=== PATIENT | female | born 1945 | race Caucasian/White ===

== ENCOUNTER 2016-10-29 16:28 | Emergency (ER) | payer OTHER ==
[2016-10-29 16:35] VITALS: BP 155/88; PULSE 86; RESP 18; TEMP 97.5; O2SAT 94
[2016-10-29] MEDS ORDERED: fentaNYL 100 MCG/2 ML INJ IVP ONE (17:06)
--- NOTE | 2016-10-29 17:10 | EDPHY ---
HPI/HX/ROS/PE/MDM Narrative: CHIEF COMPLAINT: Left sided abdominal pain. HISTORY OF PRESENT ILLNESS: This patient is a pleasant 71 year old female with history of IBS complaining of pressure and pain in the left side of her abdomen that came on suddenly around 14:00, three hours ago. She cannot identify any precipitating event, and states she was working on her computer when the pain began. She describes her discomfort as a dull ache localized to her left upper quadrant with no radiation. She states this is different from her usual IBS discomfort. She reports she has had a colonoscopy three years ago that revealed diverticula. She denies any changes in discomfort following a bowel movement. She states she has not eaten since the onset of symptoms. No history of recent illness. No fever, chills, chest pain, shortness of breath, palpitations, vomiting, diarrhea , urinary complaints, headache, lightheadedness. REVIEW OF SYSTEMS: Aside from elements discussed in the HPI, a comprehensive 10-point review of systems was reviewed and is negative. PAST MEDICAL HISTORY: Irritable bowel syndrome, Takotsubo syndrome, Hypertension , COPD, appendectomy, cholecystectomy, bladder lift SOCIAL HISTORY: Nonsmoker. Denies alcohol or drug use. Friend at bedside. VITAL SIGNS: Reviewed by me GENERAL: Well-developed, well-nourished, resting comfortably in no respiratory distress. HEENT: Atraumatic. Eyes: No icterus, no injection. Mouth: moist mucous membranes. No erythema or lesions. Neck: supple with no adenopathy. LUNGS: Clear to auscultation bilaterally, no wheezes, rhonchi or rales. CARDIAC: Regular rate and rhythm, no rubs, murmurs or gallops. ABDOMEN: Pain to left upper quadrant. Tenderness deep in left upper quadrant. No guarding or rebound. Soft, nondistended, bowel sounds normal. BACK: No CVA tenderness. EXTREMITIES: No trauma. No edema. Range of motion is normal throughout. NEURO: Alert and oriented, grossly nonfocal. SKIN: Warm and dry, no rash. PSYCHIATRIC: Normal mentation, no agitation. Portions of this note were transcribed by a medical liaison. I personally performed a history, physical exam, medical decision making, and confirmed accuracy of information the transcribed note. ED Course: This patient is a 71 year old female presenting with pain and pressure in her left upper quadrant. Physical exam reveals pain and tenderness to left upper quadrant. Plan for labs including CBC, CHEM, ad UA, and CT of the abdomen and pelvis. Labs show elevated WBC. CT shows no clear etiology of patients pain. Urine has evidence of possible very early urinary tract infection. Reassessed the patient. She has developed left flank pain, and agrees that she may have a urinary tract infection. Plan to discharge home in good condition with a prescription for Bactrim. She has an appointment with her primary care physician tomorrow, which I have encouraged her to keep. Urine culture is currently pending. The patient is comfortable with this plan. MDM: Diff dx of patients pain considered including diverticulitis, bowel obstruction , constipation, kidney stone, pyelonephritis, urinary tract infection, entereitis, colitis. - Data Points Imaging Results: CT Abd Pelvis Impression: 1. No source for the patient's left upper quadrant pain. 2. Prior cholecystectomy without biliary obstruction. 3. No hepatosplenomegaly, ascites, or bowel obstruction. 4. Atherosclerotic aorta without aneurysm. 5. No urinary tract obstruction or pyelonephritis. Findings and recommendations discussed with emergency department physician, Tammi Morris MD at 1922 hours on October 29, 2016. Dictated By: Dmitriy Hernandez Laboratory Results: Laboratory Results 10/29/16 16:55 10/29/16 16:55 Medications Given: Discontinued Medications Hydrocodone Bitart/Acetaminophen ([place] 5/325mg Prepack#6) 1 btl TAKEHOME EDNOW ONE Stop: 10/29/16 19:34 Last Admin: 10/29/16 19:46 Dose: 1 btl Dicyclomine HCl (Bentyl) 20 mg PO EDNOW ONE Stop: 10/29/16 19:25 Last Admin: 10/29/16 19:26 Dose: 20 mg Fentanyl (Sublimaze) 50 mcg IVP EDNOW ONE Stop: 10/29/16 17:07 Last Admin: 10/29/16 17:29 Dose: 50 mcg Sodium Chloride (Ns) 1,000 mls @ 0 mls/hr IV ONCE ONE; Wide Open PRN Reason: Protocol Stop: 10/29/16 19:37 Last Admin: 10/29/16 19:43 Dose: 1,000 mls Ondansetron HCl (Zofran) 4 mg IVP EDNOW ONE Stop: 10/29/16 17:57 Last Admin: 10/29/16 17:56 Dose: 4 mg Trimethoprim/Sulfamethoxazole (Bactrim Ds [place]ack#2) 1 btl ANA DEMPSEY ONE Stop: 10/29/16 19:34 Last Admin: 10/29/16 19:45 Dose: 1 btl Microbiology Results: MICROBIOLOGY 10/29/16 16:35 Urine,Clean Catch Urine Culture - Final General Time Seen by Provider: 10/29/16 16:54 Initial Vital Signs: Initial Vital Signs Temperature (C) 36.4 C 10/29/16 16:32 Heart Rate 86 10/29/16 16:32 Respiratory Rate 18 10/29/16 16:32 Blood Pressure 155/88 H 10/29/16 16:32 O2 Sat (%) 94 10/29/16 16:32 O2 Delivery Mode Room Air Allergies/Adverse Reactions: esomeprazole magnesium [From Nexium] Allergy (Severe, Verified 10/29/16 16:29) "shock" morphine [Morphine] Allergy (Severe, Verified 10/29/16 16:29) Anaphylaxis NSAIDS (Non-Steroidal Anti-Inflamma Allergy (Mild, Verified 10/29/16 16:29) Cant take because it upsets her stomach olanzapine [From Zyprexa] Allergy (Mild, Verified 10/29/16 16:29) cimetidine [Cimetidine] Allergy (Unknown, Verified 10/29/16 16:29) BRADYCARDIA metronidazole [From Flagyl] Allergy (Unknown, Verified 10/29/16 16:29) Other-Enter Comments Metronidazole HCl [From Flagyl] Allergy (Unknown, Verified 10/29/16 16:29) Other-Enter Comments omeprazole [From Prilosec] Allergy (Unknown, Verified 10/29/16 16:29) Other-Enter Comments omeprazole magnesium [From Prilosec] Allergy (Unknown, Verified 10/29/16 16:29) Other-Enter Comments dexamethasone Allergy (Verified 10/29/16 16:29) latex [Latex] Allergy (Verified 10/29/16 16:29) Rash tobramycin Allergy (Verified 10/29/16 16:29) immodium Allergy (Uncoded 10/29/16 16:29) spandex Allergy (Uncoded 11/30/13 09:52) Home Medications: Medication Instructions Recorded Estrogens,Conjugated [Premarin 1 marlene VG AD 12/11/11 Vaginal (*)] Famotidine [Pepcid 10mg] 10 mg PO HS 12/11/11 Lisinopril [Zestril 10 mg (*)] 15 mg PO DAILY@1200 12/11/11 Propranolol HCl [Inderal 10mg (*)] 10 mg PO BID 08/18/12 Diphenoxylate HCl/Atrop Sulf 1 tab PO DAILY@08 05/25/14 [Lomotil Tab (*)] Fluticasone Nasal [Flonase Nasal 2 sprays EACHNARE DAILY 05/25/14 [place]] Dicyclomine [Bentyl 10 MG (*)] 10 mg PO 04/05/16 Sulfamethox/Tmp 800/160 mg 1 tab PO BID #14 tab 10/29/16 [Bactrim Ds] Departure - Departure Disposition: Home, Routine, Self-Care Clinical Impression: Possible urinary tract infection, Left flank pain Abdominal pain Qualifiers: Abdominal location: left upper quadrant Qualified Code(s): R10.12 - Left upper quadrant pain Condition: Good Instructions: Hydrocodone/Acetaminophen (By mouth), Urinary Tract Infection in Women (ED), Abdominal Pain (ED) Additional Instructions: 1. Follow up with your primary care physician this week as scheduled. 2. We have started you on Bactrim for a potential urinary tract infection. 3. Please drink plenty of fluids and get plenty of rest. 4. We have sent your urine for culture, and your doctor should be able to relay these results. 5. You may take Tylenol as needed for pain. 6. You may use hydrocodone if needed for more severe pain. If you developed vomiting, fevers, worsening pain, or other concerns, please return to the emergency department or follow up with her primary care physician. Referrals: Tayo Lai [Primary Care Provider] - As per Instructions Prescriptions: Sulfamethox/Tmp 800/160 mg [Bactrim Ds] 1 tab PO BID #14 tab Report Scribed for: Tammi Morris Report Scribed by: Carolyn Sims Date of Report: 10/29/16 Time of Report: 18:13
[2016-10-29 17:15] LABS: % IMMATURE GRANULYOCYTES 0.2 % (0.0-1.1); ABSOLUTE IMMATURE GRANULOCYTES 0.02 10^3/uL (0.00-0.10); ADD DIFF? NO; ADD MORPH? NO; ADD SCAN? NO; ATYPICAL LYMPHOCYTE FLAG 10 (0-99); FRAGMENT RBC FLAG 0 (0-99); HEMATOCRIT 44.9 % (38.0-47.0); HEMOGLOBIN 15.2 g/dL (12.6-16.3); LEFT SHIFT FLG 0 (0-99); LIPEMIA HEMOLYSIS FLAG 90 (0-99); MEAN CELL HEMOGLOBIN 29.9 pg (27.9-34.1); MEAN CELL HEMOGLOBIN CONCENTR. 33.9 g/dL (32.4-36.7); MEAN CELL VOLUME 88.4 fL (81.5-99.8); PLATELET CLUMPS FLAG 0 (0-99); PLATELET COUNT 379 10^3/uL (150-400); RED BLOOD CELL COUNT 5.08 10^6/uL (4.18-5.33); RED CELL DISTRIBUTION WIDTH 12.5 % (11.5-15.2)
[2016-10-29 17:19] LABS: COLOR YELLOW; LEUKOCYTE ESTERASE,URINE TRACE (NEGATIVE); NITRITE,URINE NEGATIVE (NEGATIVE)
[2016-10-29 17:22] LABS: BACTERIA TRACE /hpf (NONE SEEN); MUCUS TRACE /lpf (NONE-1+)
[2016-10-29 17:23] LABS: ALANINE AMINOTRANSFERASE 30 IU/L (9-52); ALBUMIN 4.9 g/dL (3.5-5.0); ALKALINE PHOSPHATASE 70 IU/L (38-126); ANION GAP 13 mEq/L (8-16); ASPARTATE AMINOTRANSFERASE 22 IU/L (14-46); BILIRUBIN,TOTAL 0.7 mg/dL (0.1-1.4); BILIRUBIN-CONJUGATED 0.4 mg/dL (0.0-0.5); BILIRUBIN-UNCONJUGATED 0.3 mg/dL (0.0-1.1); CALCIUM 10.1 mg/dL (8.5-10.4); CARBON DIOXIDE 23 mEq/l (22-31); CHLORIDE 103 mEq/L (97-110); CREATININE 0.6 mg/dL (0.6-1.0); GLOMERULAR FILTRATION RATE > 60; GLUCOSE 102 mg/dL (70-100); POTASSIUM 4.1 mEq/L (3.5-5.2); SODIUM 139 mEq/L (134-144); TOTAL PROTEIN 7.9 g/dL (6.3-8.2)
[2016-10-29] MEDS ORDERED: ONDANSETRON 4 MG/2 ML VIAL IVP ONE (17:56)
[2016-10-29] MEDS ORDERED: IOPAMIDOL (ISOVUE-300) 100 ML BTL ONE (18:35)
[2016-10-29] MEDS ORDERED: DICYCLOMINE 10 MG CAP PO ONE (19:24)
[2016-10-29] MEDS ORDERED: HYDROCOD/APAP 5/325 PREPACK#6 BTL TAKEHOME ONE (19:33)
[2016-10-29] MEDS ORDERED: SULFAMET/TMP DS PREPACK#2 BTL TAKEHOME ONE (19:33)
[2016-10-29] MEDS ORDERED: NS 1,000 ML IV ONE (19:36)
== END 2016-10-29 20:24 | disposition home or self-care (01) ==
DX: R10.12 Left upper quadrant pain (principal); I10 Essential (primary) hypertension; J44.9 Chronic obstructive pulmonary disease, unspecified; Z90.49 Acquired absence of other specified parts of digestive tract; Z91.040 Latex allergy status
CPT/HCPCS: 96374; J1200; J2405; Q9967

== ENCOUNTER 2016-11-22 11:16 | Emergency (ER) | payer OTHER ==
[2016-11-22 11:28] VITALS: TEMP 98.2
--- NOTE | 2016-11-22 11:48 | CPEKG ---
Heart Rate: 91 RR Interval: 659 P-R Interval: 168 QRSD Interval: 94 QT Interval: 360 QTC Interval: 443 P [place]: 42 QRS [place]: 11 T Wave [place]: 34 EKG Severity - NORMAL ECG - EKG Impression: SINUS RHYTHM Electronically Signed By: Jadon Elliott 22-Nov-2016 15:10:36
[2016-11-22 12:09] LABS: % IMMATURE GRANULYOCYTES 0.4 % (0.0-1.1); ABSOLUTE IMMATURE GRANULOCYTES 0.03 10^3/uL (0.00-0.10); ADD DIFF? NO; ADD MORPH? NO; ADD SCAN? NO; ATYPICAL LYMPHOCYTE FLAG 0 (0-99); FRAGMENT RBC FLAG 0 (0-99); HEMOGLOBIN 14.7 g/dL (12.6-16.3); LEFT SHIFT FLG 0 (0-99); LIPEMIA HEMOLYSIS FLAG 80 (0-99); MEAN CELL HEMOGLOBIN 29.8 pg (27.9-34.1); MEAN CELL HEMOGLOBIN CONCENTR. 33.4 g/dL (32.4-36.7); MEAN CELL VOLUME 89.2 fL (81.5-99.8); PLATELET CLUMPS FLAG 10 (0-99); PLATELET COUNT 380 10^3/uL (150-400); RED BLOOD CELL COUNT 4.93 10^6/uL (4.18-5.33); RED CELL DISTRIBUTION WIDTH 12.6 % (11.5-15.2)
[2016-11-22 12:18] LABS: ANION GAP 16 mEq/L (8-16); CALCIUM 9.9 mg/dL (8.5-10.4); CARBON DIOXIDE 21 mEq/l (22-31); CHLORIDE 106 mEq/L (97-110); CREATININE 0.8 mg/dL (0.6-1.0); GLOMERULAR FILTRATION RATE > 60; GLUCOSE 172 mg/dL (70-100); POTASSIUM 4.1 mEq/L (3.5-5.2); SODIUM 143 mEq/L (134-144)
[2016-11-22 12:29] LABS: TROPONIN I < 0.012 ng/mL (0-0.034)
[2016-11-22] MEDS ORDERED: LORazepam 1 MG TAB PO ONE (12:58)
[2016-11-22] MEDS ORDERED: NS 1,000 ML IV ONE (12:58)
[2016-11-22 13:07] LABS: COLOR YELLOW; LEUKOCYTE ESTERASE,URINE NEGATIVE (NEGATIVE); NITRITE,URINE NEGATIVE (NEGATIVE)
[2016-11-22 13:09] LABS: MUCUS TRACE /lpf (NONE-1+)
--- NOTE | 2016-11-22 13:24 | EDPHY ---
H & P Time Seen by Provider: 11/22/16 12:16 HPI/ROS: Chief complaint. Tachycardia HPI. 71-year-old female who presents emergency department with racing heart since this morning. Began after diarrhea and she also had anxiety. She was concerned about urinary tract infection went to her regular physician who referred her to the department. She noted slight shortness of breath and slight pressure to her chest which has resolved. She still has slight nausea. She has had similar symptoms previously. No unusual leg pain or swelling. ROS Constitutional. no fever/chills, no weakness Eyes. no problems with vision ENT. no sore throat, no nasal drainage Cardiovascular. Slight chest discomfort earlier; fast heart rate Respiratory. Slight shortness of breath earlier Abdominal. No abdominal pain but slight nausea . no problems urinating MS. no calf pain/swelling, no neck/back pain, no joint pain Skin. no rash Lymph. no swollen glands Neuro. no headache, no dizziness, no difficulty walking or with speech Past Medical/Surgical History: Past medical history includes cholecystectomy, appendectomy, hysterectomy, breast biopsies, tachysubo cardiac syndrome Social History: Single, nonsmoker, no alcohol Smoking Status: Former smoker Physical Exam: General Appearance: Alert well-developed female mild distress vital signs are stable. Initial O2 saturation 86% on room air Eyes: Pupils equal and round no pallor or injection. ENT, Mouth: Mucous membranes are moist. Respiratory: There are no retractions, lungs are clear to auscultation. Cardiovascular: Regular rate and rhythm. Gastrointestinal: Abdomen is soft and nontender, no masses, bowel sounds normal. Neurological: Awake and alert, sensory and motor exams grossly normal. Skin: Warm and dry, no rashes. Musculoskeletal: Neck is supple nontender. Extremities symmetrical, full range of motion. Psychiatric: Patient is oriented X 3, there is no agitation. Constitutional: Initial Vital Signs Temperature (C) 36.8 C 11/22/16 11:26 Heart Rate 97 11/22/16 11:26 Respiratory Rate 18 11/22/16 11:26 Blood Pressure 163/90 H 11/22/16 11:26 O2 Sat (%) 86 L 11/22/16 11:26 O2 Delivery Mode Room Air O2 (L/minute) 2 Allergies/Adverse Reactions: esomeprazole magnesium [From Nexium] Allergy (Severe, Verified 10/29/16 16:29) "shock" morphine [Morphine] Allergy (Severe, Verified 10/29/16 16:29) Anaphylaxis NSAIDS (Non-Steroidal Anti-Inflamma Allergy (Mild, Verified 10/29/16 16:29) Cant take because it upsets her stomach olanzapine [From Zyprexa] Allergy (Mild, Verified 10/29/16 16:29) cimetidine [Cimetidine] Allergy (Unknown, Verified 10/29/16 16:29) BRADYCARDIA metronidazole [From Flagyl] Allergy (Unknown, Verified 10/29/16 16:29) Other-Enter Comments Metronidazole HCl [From Flagyl] Allergy (Unknown, Verified 10/29/16 16:29) Other-Enter Comments omeprazole [From Prilosec] Allergy (Unknown, Verified 10/29/16 16:29) Other-Enter Comments omeprazole magnesium [From Prilosec] Allergy (Unknown, Verified 10/29/16 16:29) Other-Enter Comments dexamethasone Allergy (Verified 10/29/16 16:29) latex [Latex] Allergy (Verified 10/29/16 16:29) Rash loperamide [From Imodium A-D] Allergy (Verified 11/09/16 11:20) tobramycin Allergy (Verified 10/29/16 16:29) immodium Allergy (Uncoded 10/29/16 16:29) spandex Allergy (Uncoded 11/30/13 09:52) Home Medications: Medication Instructions Recorded Estrogens,Conjugated [Premarin 1 marlene VG AD 12/11/11 Vaginal (*)] Famotidine [Pepcid 10mg] 10 mg PO PRN 12/11/11 Lisinopril [Zestril 10 mg (*)] 15 mg PO DAILY06 12/11/11 Propranolol HCl [Inderal 10mg (*)] 10 mg PO BID 08/18/12 Diphenoxylate HCl/Atrop Sulf 1 tab PO DAILY@08 05/25/14 [Lomotil Tab (*)] Fluticasone Nasal [Flonase Nasal 2 sprays EACHNARE DAILY 05/25/14 [place]] Dicyclomine [Bentyl 10 MG (*)] 10 mg PO PRN 04/05/16 Herbal Drugs 11/09/16 SYSTANE 0.3-0.4% EYE DROPS BID 11/09/16 Medical Decision Making - Diagnostics EKG Interpretation: EKG interpreted by me shows normal sinus rhythm with normal interval. There is left axis deviation. QRS is normal there is no significant ST elevation or depression. There is no arrhythmia. The rate is 91 Imaging Results: Imaging Impressions Chest X-Ray 11/22/16 13:27 Impression: 1. There is no evidence of congestive heart failure. 2. Right basilar diskoid subsegmental atelectasis, with some minimal linear parenchymal fibrosis at the left lung base. One-view chest x-ray interpreted by me shows some atelectasis but otherwise no evidence for pneumonia Procedures: IV normal saline, monitor Ativan orally ED Course/Re-evaluation: Re-evaluation at 2:20 p.m.. The patient and I discussed imaging, EKG, laboratory evaluation. We discussed treatment plan including criteria for return importance of follow-up further evaluation. She expresses understanding and agreement Heart rate currently 75 Differential Diagnosis: This may have been fast heart rate secondary to anxiety and dehydration possibly from the diarrhea. I considered acute coronary syndrome and pulmonary embolus and pneumonia as well. Patient is stable - Data Points Laboratory Results: Laboratory Results 11/22/16 11:00 11/22/16 11:00 11/22/16 11/22/16 11/22/16 12:13 11:00 11:00 WBC RBC Hgb Hct MCV MCH MCHC RDW Plt Count MPV Neut % (Auto) Lymph % (Auto) [place] % (Auto) Eos % (Auto) Baso % (Auto) Nucleat RBC Rel Count Absolute Neuts (auto) Absolute Lymphs (auto) Absolute Monos (auto) Absolute Eos (auto) Absolute Basos (auto) Absolute Nucleated RBC Immature Gran % Immature Gran # D-Dimer < 0.27 ug/mLFEU ug/mLFEU (0.00-0.50) Sodium 143 mEq/L mEq/L (134-144) Potassium 4.1 mEq/L mEq/L (3.5-5.2) Chloride 106 mEq/L mEq/L (97-110) Carbon Dioxide 21 mEq/l L mEq/l (22-31) Anion Gap 16 mEq/L mEq/L (8-16) BUN 11 mg/dL mg/dL (7-23) Creatinine 0.8 mg/dL mg/dL (0.6-1.0) Estimated GFR > 60 Glucose 172 mg/dL H mg/dL (70-100) Calcium 9.9 mg/dL mg/dL (8.5-10.4) Troponin I < 0.012 ng/mL ng/mL (0-0.034) TSH 0.860 uIU/mL uIU/mL (0.465-4.680) Urine Color YELLOW Urine Appearance CLEAR Urine pH 5.0 (5.0-7.5) Ur Specific [place] 1.010 (1.002-1.030) Urine Protein NEGATIVE (NEGATIVE) Urine Ketones NEGATIVE (NEGATIVE) Urine Blood NEGATIVE (NEGATIVE) Urine Nitrate NEGATIVE (NEGATIVE) Urine Bilirubin NEGATIVE (NEGATIVE) Urine Urobilinogen NEGATIVE EU EU (0.2-1.0) Ur Leukocyte Esterase NEGATIVE (NEGATIVE) Urine RBC 1-3 /hpf /hpf (0-3) Urine WBC 1-3 /hpf /hpf (0-3) Ur Epithelial Cells TRACE /lpf /lpf (NONE-1+) Urine Mucus TRACE /lpf /lpf (NONE-1+) Urine Glucose NEGATIVE (NEGATIVE) 11/22/16 11:00 WBC 8.52 10^3/uL 10^3/uL (3.80-9.50) RBC 4.93 10^6/uL 10^6/uL (4.18-5.33) Hgb 14.7 g/dL g/dL (12.6-16.3) Hct 44.0 % % (38.0-47.0) MCV 89.2 fL fL (81.5-99.8) MCH 29.8 pg pg (27.9-34.1) MCHC 33.4 g/dL g/dL (32.4-36.7) RDW 12.6 % % (11.5-15.2) Plt Count 380 10^3/uL 10^3/uL (150-400) MPV 9.0 fL fL (8.7-11.7) Neut % (Auto) 63.3 % % (39.3-74.2) Lymph % (Auto) 27.2 % % (15.0-45.0) [place] % (Auto) 5.8 % % (4.5-13.0) Eos % (Auto) 2.8 % % (0.6-7.6) Baso % (Auto) 0.5 % % (0.3-1.7) Nucleat RBC Rel Count 0.0 % % (0.0-0.2) Absolute Neuts (auto) 5.40 10^3/uL 10^3/uL (1.70-6.50) Absolute Lymphs (auto) 2.32 10^3/uL 10^3/uL (1.00-3.00) Absolute Monos (auto) 0.49 10^3/uL 10^3/uL (0.30-0.80) Absolute Eos (auto) 0.24 10^3/uL 10^3/uL (0.03-0.40) Absolute Basos (auto) 0.04 10^3/uL 10^3/uL (0.02-0.10) Absolute Nucleated RBC 0.00 10^3/uL 10^3/uL (0-0.01) Immature Gran % 0.4 % % (0.0-1.1) Immature Gran # 0.03 10^3/uL 10^3/uL (0.00-0.10) D-Dimer Sodium Potassium Chloride Carbon Dioxide Anion Gap BUN Creatinine Estimated GFR Glucose Calcium Troponin I TSH Urine Color Urine Appearance Urine pH Ur Specific [place] Urine Protein Urine Ketones Urine Blood Urine Nitrate Urine Bilirubin Urine Urobilinogen Ur Leukocyte Esterase Urine RBC Urine WBC Ur Epithelial Cells Urine Mucus Urine Glucose Medications Given: Discontinued Medications Sodium Chloride (Ns) 1,000 mls @ 0 mls/hr IV EDNOW ONE; Wide Open PRN Reason: Protocol Stop: 11/22/16 12:59 Last Admin: 11/22/16 13:04 Dose: 1,000 mls Lorazepam (Ativan) 1 mg PO EDNOW ONE Stop: 11/22/16 12:59 Last Admin: 11/22/16 13:04 Dose: 1 mg Departure - Departure Disposition: Home, Routine, Self-Care Clinical Impression: Tachycardia Condition: Good Instructions: Loperamide (By mouth), Acute Diarrhea (ED) Additional Instructions: Drink plenty of fluids and stay hydrated. Return for worsening fast heart rate, chest discomfort, trouble breathing. Recheck in 1-2 days if not continuing to improve Imodium from the grocery store to help with diarrhea if needed Referrals: Tayo Lai [Primary Care Provider] - 1 day, if not improved
[2016-11-22 14:31] VITALS: BP 136/68; PULSE 71; RESP 16; O2SAT 94
== END 2016-11-22 14:35 | disposition home or self-care (01) ==
LOC: EDUNIT# → EEVIPCON 11:16
DX: R00.0 Tachycardia, unspecified (principal); E86.9 Volume depletion, unspecified; Z87.891 Personal history of nicotine dependence

== ENCOUNTER 2016-12-28 05:55 | Day surgery (SDC) | payer OTHER ==
[2016-12-28] MEDS ORDERED: LR 1,000 ML IV ONE (06:40)
[2016-12-28] MEDS ORDERED: PROPOFOL 200 MG/20 ML VIAL ONE ×2 (06:42→07:38)
--- NOTE | 2016-12-28 06:56 | PDANEPAE ---
ANE History of Present Illness 71 year old female w/ PMHx of Takotsubo's cardiomyopathy ( 3 episodes w/ decreased EF that has recovered following each episode), colon polyps with previous removal presents for follow-up colonoscopy.) ANE Past Medical History - Cardiovascular History Hx Hypertension: Yes Hx Arrhythmias: Yes Hx Chest Pain: No Hx Coronary Artery / Peripheral Vascular Disease: No Hx CHF / Valvular Disease: Yes Hx Palpitations: No Cardiovascular History Comment: TAKOTSUBO STRESS CARDIOMYOPATHY DX '08. LAST ATTACK 1.5 Y AGO - Pulmonary History Hx COPD: Yes Hx Asthma/Reactive Airway Disease: No Hx Recent Upper Respiratory Infection: No Hx Oxygen in Use at Home: Yes O2 in Use at Home (L/minute): 2 Hx Sleep Apnea: No Sleep Apnea Screening Result - Last Documented: Negative Pulmonary History Comment: MILD COPD. HAVE O2 AT HOME IF NEEDED- USES AT HIGHER ALTITUDE- 2L/M PRN. DENIES SOB W STAIRS - Neurologic History Hx Cerebrovascular Accident: No Hx Seizures: No Hx Dementia: No Neurologic History Comment: EPISODE BELLS PALSY 2009 - Endocrine History Hx Diabetes: No Hypothyroid: No Hyperthyroid: No - Renal History Hx Renal Disorders: Yes Renal History Comment: PROLAPSED BLADDER. FREQ UTI'S. NOT EMPTYING - Liver History Hx Hepatic Disorders: No - Neurological & Psychiatric Hx Hx Neurological and Psychiatric Disorders: No - Cancer History Hx Cancer: Yes Cancer History Comment: BASAL CELL CA - Congenital Disorder History Hx Congenital Disorders: No - GI History GERD: no Hx Gastrointestinal Disorders: Yes Gastrointestinal History Comment: REFLUX. IBS. HEMORRHOIDS. POLYPS REM - Other Health History Other Health History: OA FEET. HX HYST- FIBROID - Chronic Pain History Chronic Pain: No - Surgical History Prior Surgeries: APPY. YORDY. MARCOS. NUMEROUS BREAST BX MARLYS. TONSILS ANE Review of Systems - Exercise capacity Exercise capacity: >=4 METS METS (RN): 4 METS ANE Patient History - Allergies Allergies/Adverse Reactions: esomeprazole magnesium [From Nexium] Allergy (Severe, Verified 10/29/16 16:29) "shock" morphine [Morphine] Allergy (Severe, Verified 10/29/16 16:29) Anaphylaxis NSAIDS (Non-Steroidal Anti-Inflamma Allergy (Mild, Verified 10/29/16 16:29) Cant take because it upsets her stomach olanzapine [From Zyprexa] Allergy (Mild, Verified 10/29/16 16:29) cimetidine [Cimetidine] Allergy (Unknown, Verified 10/29/16 16:29) BRADYCARDIA metronidazole [From Flagyl] Allergy (Unknown, Verified 10/29/16 16:29) Other-Enter Comments Metronidazole HCl [From Flagyl] Allergy (Unknown, Verified 10/29/16 16:29) Other-Enter Comments omeprazole [From Prilosec] Allergy (Unknown, Verified 10/29/16 16:29) Other-Enter Comments omeprazole magnesium [From Prilosec] Allergy (Unknown, Verified 10/29/16 16:29) Other-Enter Comments dexamethasone Allergy (Verified 10/29/16 16:29) latex [Latex] Allergy (Verified 10/29/16 16:29) Rash loperamide [From Imodium A-D] Allergy (Verified 11/09/16 11:20) tobramycin Allergy (Verified 10/29/16 16:29) immodium Allergy (Uncoded 10/29/16 16:29) spandex Allergy (Uncoded 11/30/13 09:52) - Home Medications Home medications: home medication list seen and reviewed Home Medications: RX: Estrogens,Conjugated [Premarin Vaginal (*)] 1 marlene VG AD 12/11/11 [Last Taken 06/07/14] RX: Famotidine [Pepcid 10mg] 10 mg PO PRN 12/11/11 [Last Taken 05/14/15] RX: Lisinopril [Zestril 10 mg (*)] 15 mg PO DAILY06 12/11/11 [Last Taken 04:30] RX: Propranolol HCl [Inderal 10mg (*)] 10 mg PO BID 08/18/12 [Last Taken ] RX: Diphenoxylate HCl/Atrop Sulf [Lomotil Tab (*)] 1 tab PO DAILY@05/25/14 [ Last Taken 05/15/15] RX: Fluticasone Nasal [Flonase Nasal [place]] 2 sprays EACHNARE DAILY 05/25/14 [ Last Taken 06/09/14 08:00] Dicyclomine [Bentyl 10 MG (*)] 10 mg PO PRN 04/05/16 [Last Taken Unknown] Herbal Drugs 11/09/16 [Last Taken Unknown] SYSTANE 0.3-0.4% EYE DROPS BID 11/09/16 [Last Taken Unknown] - NPO status NPO Status: no food or drink >8 hours NPO Since - Liquids (Date): 12/27/16 NPO Since - Liquids (Time): 22:00 NPO Since - Solids (Date): 12/27/16 NPO Since - Solids (Time): 22:00 - Anes Hx Anes Hx: no prior problems - Smoking Hx Smoking Status: Former smoker - Family Anes Hx Family Anes Hx: neg - N/A Family Hx Anesthesia Complications: NONE ANE Labs/Vital Signs - Vital Signs Vital Signs: reviewed preoperatively; see RN documention for details Blood Pressure: 163/94 Heart Rate: 84 Respiratory Rate: 16 O2 Sat (%): 91 Height: 162.56 cm Weight: 69.4 kg ANE Physical Exam - Airway Neck exam: FROM Mallampati Score: Class 2 Mouth image: 1 - #8 is broken - Pulmonary Pulmonary: no respiratory distress - Cardiovascular Cardiovascular: regular rate and rhythym - ASA Status ASA Status: III ANE Anesthesia Plan Anesthesia Plan: GA with mask Total IV Anesthesia: Yes
[2016-12-28] MEDS ORDERED: MIDAZOLAM 2 MG/2 ML VIAL IVP ONE (07:02)
--- NOTE | 2016-12-28 07:30 | PDGENHP ---
History & Physical Chief Complaint: hx polyps History of Present Illness: hx polyps Pertinent Past, Social, Family History: reviewed Relevant Physical Exam: nad Cardiorespiratory Assessment: rrr. ctab
[2016-12-28] MEDS ORDERED: MEPERIDINE 25 MG/ML SYR IVP PRN (07:48)
[2016-12-28] MEDS ORDERED: fentaNYL 100 MCG/2 ML INJ IVP PRN (07:48)
[2016-12-28] MEDS ORDERED: ONDANSETRON 4 MG/2 ML VIAL IVP PRN (07:48)
[2016-12-28] MEDS ORDERED: NALOXONE HCL 0.4 MG/ML INJ IVP PRN (07:48)
[2016-12-28] MEDS ORDERED: LR 500 ML IV PRN (07:48)
[2016-12-28] MEDS ORDERED: ONDANSETRON 4 MG/2 ML VIAL ONE (07:50)
--- NOTE | 2016-12-28 08:09 | GPN ---
[f rep st] PROCEDURE NOTE DATE OF PROCEDURE: 12/28/2016 PROCEDURE: Colonoscopy with biopsy. INDICATION: Personal history of colon polyps. CONSENT: Informed consent was obtained from the patient after an explanation of risks, benefits, an d alternatives to the procedure. MEDICATIONS GIVEN: Propofol per anesthesia. DESCRIPTION OF EXAM: After adequate sedation was achieved, the colonoscope was advanced under direc t vision through the anal orifice and as far as the cecum and terminal ilium. The appendiceal orifi ce, ileocecal valve, and terminal ilium were photographed. Views were good. Prep was adequate. Pa tient tolerance was good. Retroflexion was performed in the ascending colon and in the rectum. COMPLICATIONS: None. ESTIMATED BLOOD LOSS: None. FINDINGS: 1. Normal terminal ileum. 2. Normal cecum, ascending colon, transverse colon, descending colon. 3. A 2 mm sigmoid polyp was removed. 4. Medium to large internal hemorrhoids were noted along with changes consistent with possible rect al prolapse. 5. No obvious external hemorrhoids were seen on perianal exam. IMPRESSION: A single 2 mm sigmoid polyp removed with cold biopsy forceps, and otherwise negative co lonoscopy with the exception of internal hemorrhoids and possibly some changes of prolapse. RECOMMENDATIONS: 1. Await pathology. 2. Resume regular medications. 3. Resume regular diet. 4. Consider barium enema if continues to have issues with difficult defecation. Also could conside r pelvic floor physical therapy. 5. Repeat colonoscopy recommended in 5 years given previous history of multiple adenomas. /[id number]/MODL
--- NOTE | 2016-12-28 08:35 | POSTANESTH ---
Post Anesthetic Evaluation Cardiovascular Status: Normal, Stable Respiratory Status: Normal, Stable Level of Consciousness/Mental Status: Can Participate in Eval Pain Control: Adequate, Prn Tx Ordered Nausea/Vomiting Control: Adequate, Prn Tx Ordered Complications Possibly Related to Anesthesia: None Noted
[2016-12-28 08:49] VITALS: BP 134/80; PULSE 67; RESP 18; TEMP 98.2; O2SAT 92
== END 2016-12-28 09:00 | disposition home or self-care (01) ==
LOC: FSGY 05:55
PROVIDERS: ATTEND Internal Medicine
PROC: 0DBN8ZX Excision of Sigmoid Colon, Via Natural or Artificial Opening Endoscopic, Diagnostic (ICD-10-PCS; principal; 2016-12-28 07:30)
DX: D12.5 Benign neoplasm of sigmoid colon (principal); K64.9 Unspecified hemorrhoids; I51.81 Takotsubo syndrome; Z87.440 Personal history of urinary (tract) infections; Z86.010 Personal history of colon polyps
CPT/HCPCS: J2250; J2405; J2704

== ENCOUNTER → 2017-01-22 | Outpatient (CLI) | payer OTHER | LOC: FIMAGING 08:56 | PROVIDERS: ATTEND Internal Medicine | DX: R15.0 Incomplete defecation (principal) ==

== ENCOUNTER 2017-02-23 10:09 | Observation (INO) | payer OTHER ==
[2017-02-23] MEDS ORDERED: NS 500 ML IV ONE (10:18)
[2017-02-23] MEDS ORDERED: ASPIRIN 81 MG CHEWABLE TAB PO ONE (10:18)
--- NOTE | 2017-02-23 10:25 | CPEKG ---
Heart Rate: 74 RR Interval: 811 P-R Interval: 168 QRSD Interval: 86 QT Interval: 400 QTC Interval: 444 P Calvin: 37 QRS Calvin: 17 T Wave Calvin: 45 EKG Severity - ABNORMAL ECG - EKG Impression: SINUS RHYTHM EKG Impression: MULTIPLE ATRIAL PREMATURE COMPLEXES Electronically Signed By: Alex eMndoza 23-Feb-2017 15:22:20
[2017-02-23 10:55] LABS: % IMMATURE GRANULYOCYTES 0.2 % (0.0-1.1); ABSOLUTE IMMATURE GRANULOCYTES 0.02 10^3/uL (0.00-0.10); ADD DIFF? NO; ADD MORPH? NO; ADD SCAN? NO; ATYPICAL LYMPHOCYTE FLAG 10 (0-99); FRAGMENT RBC FLAG 0 (0-99); HEMATOCRIT 41.4 % (38.0-47.0); HEMOGLOBIN 14.5 g/dL (12.6-16.3); LEFT SHIFT FLG 0 (0-99); LIPEMIA HEMOLYSIS FLAG 90 (0-99); MEAN CELL HEMOGLOBIN 31.3 pg (27.9-34.1); MEAN CELL VOLUME 89.2 fL (81.5-99.8); MEAN PLATELET VOLUME 8.8 fL (8.7-11.7); PLATELET CLUMPS FLAG 0 (0-99); PLATELET COUNT 341 10^3/uL (150-400); RED BLOOD CELL COUNT 4.64 10^6/uL (4.18-5.33); RED CELL DISTRIBUTION WIDTH 12.6 % (11.5-15.2)
[2017-02-23 11:03] LABS: ANION GAP 12 mEq/L (8-16); CALCIUM 9.6 mg/dL (8.5-10.4); CARBON DIOXIDE 26 mEq/l (22-31); CHLORIDE 105 mEq/L (97-110); CREATININE 0.7 mg/dL (0.6-1.0); GLOMERULAR FILTRATION RATE > 60; GLUCOSE 114 mg/dL (70-100); INR 0.93 (0.83-1.16); PROTIME(PATIENT) 12.4 SEC (12.0-15.0); SODIUM 143 mEq/L (134-144)
[2017-02-23 11:04] LABS: APTT 31.7 SEC (23.0-38.0)
--- NOTE | 2017-02-23 11:08 | EDPHY ---
H & P Time Seen by Provider: 02/23/17 10:18 HPI/ROS: HPI Chest pain. 71-year-old female by private vehicle. She has a history of coronary artery disease. 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 She complains of mid substernal chest pain with some radiation to the right side, on and off since last night. She describes pain as aching and squeezing with some radiation to the right side of her chest. She denies any chest pain at this time. She has some mild associated shortness of breath when she is having these episodes of chest pain. ROS: Constitutional: No fever, no chills. No weakness. Eyes: No discharge. No changes in vision. ENT: No sore throat. No nasal congestion or rhinorrhea. Respiratory: No cough. As above. Cardiac: As above, no palpitations. Gastrointestinal: No abdominal pain, no vomiting, no diarrhea. Genitourinary: No hematuria. No dysuria or increased frequency with urination. Musculoskeletal: No back pain. No neck pain. No myalgias or arthralgias. Skin: No rashes. Neurological: No headache. No focal weakness or altered sensation. Past medical history: Cholecystectomy, appendectomy, hysterectomy, Tachysubo's cardiac syndrome/broken heart syndrome. Social history: Here by herself. Nonsmoker. No alcohol. Physical Exam: General Appearance: Alert, no distress. This patient is responding to questions appropriately and in full sentences. This patient appears well- hydrated and well-nourished. Eyes: Pupils equal and round no pallor or injection. No lid edema, erythema or injection. Respiratory: There are no retractions, lungs are clear to auscultation with good air movement bilaterally. Cardiovascular: Regular rate and rhythm. No murmur. Gastrointestinal: Abdomen is soft and nontender, no masses, bowel sounds normal. No focal tenderness at McBurney's point. No Srinivasan sign. Neurological: Motor sensory function is grossly intact. Cranial nerves are normal. Gait is normal. Skin: Warm and dry, no rashes. Musculoskeletal: Neck is supple and nontender. Extremities are symmetrical. All joints range without pain or impingement. Psychiatric: No agitation. No depression. Database: EKG: EKG time is 10:23 a.m.; EKG shows a narrow complex normal sinus rhythm with a ventricular rate of 74. Multiple atrial premature complexes in a bigeminal pattern. The ND, QRS, QT intervals are within normal limits. There are no ST- T wave changes indicative of ischemic or injury pattern. No evidence of right heart strain. Interpreted by me. Imaging: Chest x-ray AP portable; the cardiac mediastinal silhouette is unremarkable. No evidence of infiltrate or pneumothorax. No acute cardiopulmonary disease process noted. Interpreted by me. Procedures: Emergency department course: IV placed. She was placed on a monitor. Vital signs were reviewed. He was given 324 mg of aspirin. 11:05 a.m., no chest pain at this time. I discussed admission for observation and further workup with her. She endorses. 11:25 a.m., discussed case with hospitalist. Patient accepted for admission for observation and further workup by Dr. Owen. 11:30 a.m., patient re-evaluated. Results of diagnostic test discussed. Plan for admission to the hospitalist service reviewed. All of her questions were answered. She was admitted in stable condition to the hospitalist service. Differential Diagnosis: The differential diagnosis on this patient includes but is not limited to acute coronary syndrome, esophageal reflux, PE. Aortic dissection, pneumothorax, pericarditis, myocarditis unlikely. This represents a partial list of diagnoses considered. These considerations are based on history, physical exam , past history, reassessment and diagnostic testing. Smoking Status: Former smoker Constitutional: Initial Vital Signs Temperature (C) 36.4 C 02/23/17 10:11 Heart Rate 82 02/23/17 10:11 Respiratory Rate 18 02/23/17 10:11 Blood Pressure 162/88 H 02/23/17 10:11 O2 Sat (%) 94 02/23/17 10:11 O2 Delivery Mode Room Air Allergies/Adverse Reactions: esomeprazole magnesium [From Nexium] Allergy (Severe, Verified 10/29/16 16:29) "shock" morphine [Morphine] Allergy (Severe, Verified 10/29/16 16:29) Anaphylaxis NSAIDS (Non-Steroidal Anti-Inflamma Allergy (Mild, Verified 10/29/16 16:29) Cant take because it upsets her stomach olanzapine [From Zyprexa] Allergy (Mild, Verified 10/29/16 16:29) cimetidine [Cimetidine] Allergy (Unknown, Verified 10/29/16 16:29) BRADYCARDIA metronidazole [From Flagyl] Allergy (Unknown, Verified 06/25/17 16:29) Other-Enter Comments Metronidazole HCl [From Flagyl] Allergy (Unknown, Verified 10/29/16 16:29) Other-Enter Comments omeprazole [From Prilosec] Allergy (Unknown, Verified 10/29/16 16:29) Other-Enter Comments omeprazole magnesium [From Prilosec] Allergy (Unknown, Verified 10/29/16 16:29) Other-Enter Comments dexamethasone Allergy (Verified 10/29/16 16:29) latex [Latex] Allergy (Verified 10/29/16 16:29) Rash loperamide [From Imodium A-D] Allergy (Verified 11/09/16 11:20) tobramycin Allergy (Verified 10/29/16 16:29) immodium Allergy (Uncoded 10/29/16 16:29) spandex Allergy (Uncoded 11/30/13 09:52) Home Medications: Medication Instructions Recorded Estrogens,Conjugated [Premarin 1 marlene VG AD 12/11/11 Vaginal (*)] Famotidine [Pepcid 10mg] 10 mg PO PRN 12/11/11 Lisinopril [Zestril 10 mg (*)] 15 mg PO DAILY06 12/11/11 Propranolol HCl [Inderal 10mg (*)] 10 mg PO BID 08/18/12 Diphenoxylate HCl/Atrop Sulf 1 tab PO DAILY@08 05/25/14 [Lomotil Tab (*)] Fluticasone Nasal [Flonase Nasal 2 sprays EACHNARE DAILY 05/25/14 Ama] Dicyclomine [Bentyl 10 MG (*)] 10 mg PO PRN 04/05/16 Herbal Drugs 11/09/16 SYSTANE 0.3-0.4% EYE DROPS BID 11/09/16 Medical Decision Making - Diagnostics Imaging Results: Imaging Impressions Chest X-Ray 02/23/17 10:18 Impression: 1. No acute pulmonary disease. 2. Consider chest two views when the patient's medical condition permits. - Data Points Laboratory Results: Laboratory Results 02/23/17 10:35 02/23/17 10:35 02/23/17 02/23/17 02/23/17 10:35 10:35 10:35 WBC 8.14 10^3/uL 10^3/uL (3.80-9.50) RBC 4.64 10^6/uL 10^6/uL (4.18-5.33) Hgb 14.5 g/dL g/dL (12.6-16.3) Hct 41.4 % % (38.0-47.0) MCV 89.2 fL fL (81.5-99.8) MCH 31.3 pg pg (27.9-34.1) MCHC 35.0 g/dL g/dL (32.4-36.7) RDW 12.6 % % (11.5-15.2) Plt Count 341 10^3/uL 10^3/uL (150-400) MPV 8.8 fL fL (8.7-11.7) Neut % (Auto) 55.6 % % (39.3-74.2) Lymph % (Auto) 31.6 % % (15.0-45.0) [place] % (Auto) 7.6 % % (4.5-13.0) Eos % (Auto) 4.1 % % (0.6-7.6) Baso % (Auto) 0.9 % % (0.3-1.7) Nucleat RBC Rel Count 0.0 % % (0.0-0.2) Absolute Neuts (auto) 4.53 10^3/uL 10^3/uL (1.70-6.50) Absolute Lymphs (auto) 2.57 10^3/uL 10^3/uL (1.00-3.00) Absolute Monos (auto) 0.62 10^3/uL 10^3/uL (0.30-0.80) Absolute Eos (auto) 0.33 10^3/uL 10^3/uL (0.03-0.40) Absolute Basos (auto) 0.07 10^3/uL 10^3/uL (0.02-0.10) Absolute Nucleated RBC 0.00 10^3/uL 10^3/uL (0-0.01) Immature Gran % 0.2 % % (0.0-1.1) Immature Gran # 0.02 10^3/uL 10^3/uL (0.00-0.10) PT 12.4 SEC SEC (12.0-15.0) INR 0.93 (0.83-1.16) APTT 31.7 SEC SEC (23.0-38.0) D-Dimer 0.31 ug/mLFEU ug/mLFEU (0.00-0.50) Sodium 143 mEq/L mEq/L (134-144) Potassium 5.0 mEq/L mEq/L (3.5-5.2) Chloride 105 mEq/L mEq/L (97-110) Carbon Dioxide 26 mEq/l mEq/l (22-31) Anion Gap 12 mEq/L mEq/L (8-16) BUN 8 mg/dL mg/dL (7-23) Creatinine 0.7 mg/dL mg/dL (0.6-1.0) Estimated GFR > 60 Glucose 114 mg/dL H mg/dL (70-100) Calcium 9.6 mg/dL mg/dL (8.5-10.4) Total Bilirubin 0.6 mg/dL mg/dL (0.1-1.4) Conjugated Bilirubin 0.3 mg/dL mg/dL (0.0-0.5) Unconjugated Bilirubin 0.3 mg/dL mg/dL (0.0-1.1) AST 16 IU/L IU/L (14-46) ALT 27 IU/L IU/L (9-52) Alkaline Phosphatase 67 IU/L IU/L (38-126) Creatine Kinase 32 IU/L IU/L (0-156) CK-MB (CK-2) Fraction 0.33 ng/mL ng/mL (0.00-3.19) Troponin I < 0.012 ng/mL ng/mL (0.000-0.034) Total Protein 6.7 g/dL g/dL (6.3-8.2) Albumin 4.3 g/dL g/dL (3.5-5.0) Lipase 69 IU/L IU/L (23-300) Medications Given: Discontinued Medications Aspirin (Aspirin) 324 mg PO EDNOW ONE Stop: 02/23/17 10:19 Last Admin: 02/23/17 10:30 Dose: 324 mg Sodium Chloride (Ns) 500 mls @ 1,000 mls/hr IV EDNOW ONE PRN Reason: Protocol Stop: 02/23/17 10:47 Last Admin: 02/23/17 10:31 Dose: 500 mls Departure - Departure Disposition: [facility] Inpatient Acute Clinical Impression: Chest pain Referrals: NONE *PRIMARY CARE P,. [Primary Care Provider] - As per Instructions
[2017-02-23 11:11] LABS: ALANINE AMINOTRANSFERASE 27 IU/L (9-52); ALBUMIN 4.3 g/dL (3.5-5.0); ALKALINE PHOSPHATASE 67 IU/L (38-126); ASPARTATE AMINOTRANSFERASE 16 IU/L (14-46); BILIRUBIN,TOTAL 0.6 mg/dL (0.1-1.4); BILIRUBIN-CONJUGATED 0.3 mg/dL (0.0-0.5); BILIRUBIN-UNCONJUGATED 0.3 mg/dL (0.0-1.1); TOTAL PROTEIN 6.7 g/dL (6.3-8.2)
[2017-02-23 11:13] LABS: CREATINE KINASE-MB FRACTION 0.33 ng/mL (0.00-3.19); TROPONIN I < 0.012 ng/mL (0.000-0.034)
[2017-02-23] MEDS ORDERED: ONDANSETRON 4 MG/2 ML VIAL IVP PRN (11:42)
[2017-02-23] MEDS ORDERED: ONDANSETRON DISINTEGRATING 4 MG TAB PO PRN (11:42)
[2017-02-23] MEDS ORDERED: ACETAMINOPHEN 325 MG TAB PO PRN (11:42)
[2017-02-23] MEDS ORDERED: LORazepam 2 MG/ML INJ IVP ONE (12:28)
[2017-02-23] MEDS ORDERED: FAMOTIDINE 10 MG PO PRN (12:39)
[2017-02-23] MEDS ORDERED: ALBUTEROL INH PREPACK MDI TAKEHOME PRN (12:39)
[2017-02-23] MEDS ORDERED: ESTROGENS,CONJUGATED 30 GM CRTUBE VG SCH (12:45)
[2017-02-23] MEDS ORDERED: ALBUTEROL 200 PUFFS/18 GM MDI IH PRN (13:47)
[2017-02-23] MEDS ORDERED: FAMOTIDINE 20 MG TAB PO PRN (13:51)
[2017-02-23] MEDS: PROPRANOLOL HCL 10 MG TAB PO SCH ×3 (14:00→18:07)
--- NOTE | 2017-02-23 14:43 | PDGENHP ---
History and Physical - Chief Complaint Acute chest pain - History of Present Illness Primary care provider: Dr. Lai in [facility] Primary credit operations processor Dr. Wei Clarke HPI: 71-year-old female presenting with acute chest pain characterized as an aching squeezing sensation located in the substernal area with radiation to the right chest, with onset of symptoms on the day prior to this presentation, and described as short duration 3 seconds episodes of pain, occurring throughout the course of the day, exacerbated by ambulation, alleviated with rest. Patient denies taking any medication for the symptoms and she reports that she had 1 episode of lower severity approximately 1 hour prior to presentation. She reports that her previous episodes of chest pain associated with her Takasubo's cardiomyopathy were of higher severity and longer duration. She notes no recent reduction in exercise tolerance but does report at least 1 recent episode of lightheadedness upon standing. The patient reports that she has been taking all of her home medications as prescribed, but has only been taking an [id number] antacid medication. History Information - Allergies/Home Medication List Allergies/Adverse Reactions: esomeprazole magnesium [From Nexium] Allergy (Severe, Verified 10/29/16 16:29) "shock" morphine [Morphine] Allergy (Severe, Verified 10/29/16 16:29) Anaphylaxis NSAIDS (Non-Steroidal Anti-Inflamma Allergy (Mild, Verified 10/29/16 16:29) Cant take because it upsets her stomach olanzapine [From Zyprexa] Allergy (Mild, Verified 10/29/16 16:29) cimetidine [Cimetidine] Allergy (Unknown, Verified 10/29/16 16:29) BRADYCARDIA metronidazole [From Flagyl] Allergy (Unknown, Verified 10/29/16 16:29) Other-Enter Comments Metronidazole HCl [From Flagyl] Allergy (Unknown, Verified 10/29/16 16:29) Other-Enter Comments omeprazole [From Prilosec] Allergy (Unknown, Verified 10/29/16 16:29) Other-Enter Comments omeprazole magnesium [From Prilosec] Allergy (Unknown, Verified 10/29/16 16:29) Other-Enter Comments dexamethasone Allergy (Verified 10/29/16 16:29) latex [Latex] Allergy (Verified 10/29/16 16:29) Rash loperamide [From Imodium A-D] Allergy (Verified 11/09/16 11:20) tobramycin Allergy (Verified 10/29/16 16:29) immodium Allergy (Uncoded 10/29/16 16:29) spandex Allergy (Uncoded 11/30/13 09:52) Home Medications: Estrogens,Conjugated [Premarin Vaginal (*)] 1 marlene VG AD 12/11/11 [Last Taken ] Famotidine [Pepcid 10mg] 10 mg PO BID PRN 12/11/11 [Last Taken 02/23/17] Lisinopril [Zestril 10 mg (*)] 15 mg PO BID 12/11/11 [Last Taken 02/23/17] Propranolol HCl [Inderal 10mg (*)] 10 mg PO Q4H 08/18/12 [Last Taken 02/23/17] Diphenoxylate HCl/Atrop Sulf [Lomotil Tab (*)] 1 tab PO Q6H 05/25/14 [Last Taken 02/23/17] Fluticasone Nasal [Flonase Nasal [place]] 2 sprays EACHNARE DAILY 05/25/14 [Last Taken 06/09/14 08:00] Dicyclomine [Bentyl 10 MG (*)] 10 mg PO DAILY 04/05/16 [Last Taken 02/22/17] Propylene Glycol/Peg 400 [Systane 0.3-0.4% Eye Drops] 5 ml OP BID #0 11/09/16 [ Last Taken Unknown] Albuterol Sulfate [Proair Hfa] 1 inh PO PRN PRN 02/23/17 [Last Taken Unknown] I have personally reviewed and updated: family history, medical history, social history, surgical history - Past Medical History GERD Additional medical history: Nonischemic cardiomyopathy beginning in 2007 with reduced ejection fraction felt to be possibly secondary to vasospasm and normal cardiac catheterization at that time, recurrent episode of nonischemic cardiomyopathy in 2010 with ejection fraction 25%, normal cardiac catheterization at that time, recovery of ejection fraction, and then recurrence again in 2012 - Surgical History Reports: appendectomy, cholecystectomy, hysterectomy Additional surgical history: Previous cardiac catheterizations - Family History Additional family history: Patient's parents are both living and in their 90s - Social History Smoking Status: Former smoker Alcohol Use: None Drug Use: None Additional social history: Normally walks several miles several times weekly Review of Systems Review of Systems: ROS: 10pt was reviewed & negative except for what was stated in HPI & below Cardiac: Reports: chest pain Neurological: Reports: other (Lightheadedness) Physical Exam Physical Exam: Temp Pulse Resp BP Pulse Ox 35.9 C L 67 18 173/109 H 93 02/23/17 13:34 02/23/17 13:34 02/23/17 13:34 02/23/17 13:34 02/23/17 13:34 Constitutional: no apparent distress, appears nourished, not in pain Eyes: PERRL, anicteric sclera, EOMI Ears, Nose, Mouth, Throat: moist mucous membranes, hearing normal, ears appear normal, no oral mucosal ulcers Cardiovascular: other (Abnormal rhythm), No systolic murmur, No tachycardia, No edema Respiratory: no respiratory distress, no rales or rhonchi, clear to auscultation Gastrointestinal: normoactive bowel sounds, soft, non-tender abdomen, no palpable masses Genitourinary: no bladder fullness, no bladder tenderness Skin: warm, normal color, no rashes or abrasions, no fluctuance, no induration, No mottled Musculoskeletal: other (No tenderness over the sternum, no tenderness over the pectoralis muscles, no pain with anterior flexion of the bilateral shoulders) Neurologic: AAOx3, sensation intact bilaterally, No weakness, No facial droop Psychiatric: interacting appropriately, not anxious, not encephalopathic, thought process linear Lab Data & Imaging Review 02/23/17 10:35 02/23/17 10:35 WBC 8.14 10^3/uL (3.80-9.50) 02/23/17 10:35 RBC 4.64 10^6/uL (4.18-5.33) 02/23/17 10:35 Hgb 14.5 g/dL (12.6-16.3) 02/23/17 10:35 Hct 41.4 % (38.0-47.0) 02/23/17 10:35 MCV 89.2 fL (81.5-99.8) 02/23/17 10:35 MCH 31.3 pg (27.9-34.1) 02/23/17 10:35 MCHC 35.0 g/dL (32.4-36.7) 02/23/17 10:35 RDW 12.6 % (11.5-15.2) 02/23/17 10:35 Plt Count 341 10^3/uL (150-400) 02/23/17 10:35 MPV 8.8 fL (8.7-11.7) 02/23/17 10:35 Neut % (Auto) 55.6 % (39.3-74.2) 02/23/17 10:35 Lymph % (Auto) 31.6 % (15.0-45.0) 02/23/17 10:35 [place] % (Auto) 7.6 % (4.5-13.0) 02/23/17 10:35 Eos % (Auto) 4.1 % (0.6-7.6) 02/23/17 10:35 Baso % (Auto) 0.9 % (0.3-1.7) 02/23/17 10:35 Nucleat RBC Rel Count 0.0 % (0.0-0.2) 02/23/17 10:35 Absolute Neuts (auto) 4.53 10^3/uL (1.70-6.50) 02/23/17 10:35 Absolute Lymphs (auto) 2.57 10^3/uL (1.00-3.00) 02/23/17 10:35 Absolute Monos (auto) 0.62 10^3/uL (0.30-0.80) 02/23/17 10:35 Absolute Eos (auto) 0.33 10^3/uL (0.03-0.40) 02/23/17 10:35 Absolute Basos (auto) 0.07 10^3/uL (0.02-0.10) 02/23/17 10:35 Absolute Nucleated RBC 0.00 10^3/uL (0-0.01) 02/23/17 10:35 Immature Gran % 0.2 % (0.0-1.1) 02/23/17 10:35 Immature Gran # 0.02 10^3/uL (0.00-0.10) 02/23/17 10:35 PT 12.4 SEC (12.0-15.0) 02/23/17 10:35 INR 0.93 (0.83-1.16) 02/23/17 10:35 APTT 31.7 SEC (23.0-38.0) 02/23/17 10:35 D-Dimer 0.31 ug/mLFEU (0.00-0.50) 02/23/17 10:35 Sodium 143 mEq/L (134-144) 02/23/17 10:35 Potassium 5.0 mEq/L (3.5-5.2) 02/23/17 10:35 Chloride 105 mEq/L (97-110) 02/23/17 10:35 Carbon Dioxide 26 mEq/l (22-31) 02/23/17 10:35 Anion Gap 12 mEq/L (8-16) 02/23/17 10:35 BUN 8 mg/dL (7-23) 02/23/17 10:35 Creatinine 0.7 mg/dL (0.6-1.0) 02/23/17 10:35 Estimated GFR > 60 02/23/17 10:35 Glucose 114 mg/dL (70-100) H 02/23/17 10:35 Calcium 9.6 mg/dL (8.5-10.4) 02/23/17 10:35 Total Bilirubin 0.6 mg/dL (0.1-1.4) 02/23/17 10:35 Conjugated Bilirubin 0.3 mg/dL (0.0-0.5) 02/23/17 10:35 Unconjugated Bilirubin 0.3 mg/dL (0.0-1.1) 02/23/17 10:35 AST 16 IU/L (14-46) 02/23/17 10:35 ALT 27 IU/L (9-52) 02/23/17 10:35 Alkaline Phosphatase 67 IU/L (38-126) 02/23/17 10:35 Creatine Kinase 32 IU/L (0-156) 02/23/17 10:35 CK-MB (CK-2) Fraction 0.33 ng/mL (0.00-3.19) 02/23/17 10:35 Troponin I < 0.012 ng/mL (0.000-0.034) 02/23/17 10:35 Total Protein 6.7 g/dL (6.3-8.2) 02/23/17 10:35 Albumin 4.3 g/dL (3.5-5.0) 02/23/17 10:35 Lipase 69 IU/L (23-300) 02/23/17 10:35 Visualized and Interpreted Chest x-ray results: Yes Chest X-Ray results: no infiltrate Visualized and Interpreted EKG results: Yes EKG Interpretation: Positive for: other (Sinus arrhythmia with PACs) Assessment & Plan Assessment: 71-year-old female presents with acute chest pain in the setting of nonischemic cardiomyopathy Plan: 1. Chest pain. Acute, new problem this provider, further workup indicated. Potential etiologies include acute coronary syndrome versus recurrent nonischemic cardiomyopathy versus gastroesophageal reflux disease -given that her presenting symptoms are of similar character to previous episodes of nonischemic cardiomyopathy, will get echocardiogram at this time -will monitor on telemetry -will give prescription strength proton pump inhibitor and gauge effect -will cycle cardiac enzymes and get nuclear medicine stress test in a.m. -would recommend pursuing outpatient event monitoring as prescribed by primary credit operations processor Dr. Wei Clarke 2. History of nonischemic cardiomyopathy. Patient's ejection fraction is reportedly normalized per chart review and echocardiogram from 05/15/2015 demonstrating ejection fraction of 65%, diastolic dysfunction -will repeat echo at this time -no evidence of acute CHF Diet. Cardiac, NPO in a.m. for stress test Code. Full Prophylaxis. High risk, Lovenox 40 Disposition. Anticipated discharge is 02/24/2017, pending further workup as outlined above I have discussed this case with Kady Serrato, hospitalist provider, she has signed out the patient to me for evaluation.
[2017-02-23] MEDS: DIPHENOXYLATE/ATROPINE LOMOTIL 1 TAB PO SCH ×2 (15:41→17:38)
[2017-02-23] MEDS: LISINOPRIL 10 MG TAB PO SCH (21:08)
[2017-02-23] MEDS: EYE OP SCH (21:11)
[2017-02-23] MEDS: SYSTANE OP SCH (21:11)
[2017-02-24] MEDS: DIPHENOXYLATE/ATROPINE LOMOTIL 1 TAB PO SCH ×4 (01:18→12:31)
[2017-02-24 04:40] LABS: % IMMATURE GRANULYOCYTES 0.2 % (0.0-1.1); ABSOLUTE IMMATURE GRANULOCYTES 0.02 10^3/uL (0.00-0.10); ADD DIFF? NO; ADD MORPH? NO; ADD SCAN? NO; ATYPICAL LYMPHOCYTE FLAG 10 (0-99); FRAGMENT RBC FLAG 0 (0-99); HEMOGLOBIN 13.5 g/dL (12.6-16.3); LEFT SHIFT FLG 0 (0-99); LIPEMIA HEMOLYSIS FLAG 80 (0-99); MEAN CELL HEMOGLOBIN 29.9 pg (27.9-34.1); MEAN CELL HEMOGLOBIN CONCENTR. 32.9 g/dL (32.4-36.7); MEAN CELL VOLUME 90.7 fL (81.5-99.8); PLATELET CLUMPS FLAG 0 (0-99); PLATELET COUNT 290 10^3/uL (150-400); RED BLOOD CELL COUNT 4.52 10^6/uL (4.18-5.33); RED CELL DISTRIBUTION WIDTH 12.7 % (11.5-15.2)
[2017-02-24 05:06] LABS: ALANINE AMINOTRANSFERASE 25 IU/L (9-52); ALBUMIN 3.6 g/dL (3.5-5.0); ALKALINE PHOSPHATASE 54 IU/L (38-126); ANION GAP 12 mEq/L (8-16); ASPARTATE AMINOTRANSFERASE 18 IU/L (14-46); BILIRUBIN,TOTAL 0.5 mg/dL (0.1-1.4); CALCIUM 9.1 mg/dL (8.5-10.4); CARBON DIOXIDE 25 mEq/l (22-31); CHLORIDE 106 mEq/L (97-110); CREATININE 0.7 mg/dL (0.6-1.0); GLOMERULAR FILTRATION RATE > 60; GLUCOSE 112 mg/dL (70-100); POTASSIUM 4.1 mEq/L (3.5-5.2); SODIUM 143 mEq/L (134-144); TOTAL PROTEIN 5.7 g/dL (6.3-8.2)
[2017-02-24 05:14] LABS: TROPONIN I < 0.012 ng/mL (0.000-0.034)
[2017-02-24 08:11] VITALS: RESP 18; O2SAT 90
[2017-02-24] MEDS ORDERED: FLUTICASONE NASAL 120 SPRAYS/16 GM MDI EACHNARE SCH (09:00)
[2017-02-24] MEDS ORDERED: ENOXAPARIN 40 MG/0.4 ML SYR SC SCH (09:00)
[2017-02-24] MEDS ORDERED: DICYCLOMINE 10 MG CAP PO SCH (09:00)
[2017-02-24] MEDS: PROPRANOLOL HCL 10 MG TAB PO SCH ×2 (10:00→12:31)
--- NOTE | 2017-02-24 10:36 | CPR ---
[f rep st] NONINVASIVE CARDIAC PROCEDURE REPORT NAME OF PROCEDURE: Exercise treadmill MPI study. INDICATION FOR PROCEDURE: Known history of coronary artery disease, episode of chest pressure. PRE: After obtaining informed consent, patient was placed on electrocardiogram. Initial EKG showing sinus rhythm, normal axis, non significant ST or T-wave abnormalities suggesting ischemia, frequent premature atrial contractions. Initial blood pressure 128/80. Patient denies any chest pain or symp toms suggesting ischemia. Saturation 94% on room air. STRESS: Patient was placed on exercise treadmill, following standard [facility] protocol with the followi ng findings: 1. Patient was able to exercise for 3 minutes and 30 seconds. 2. 4.6 METS. 3. She attained a heart rate of 139 beats per minute, which was 92% of her maximum predicted heart r ate. 4. Patient had no chest pain or symptoms of ischemia during exercise. 5. Patient was noted to have a [address] depression inferior lateral leads at peak exercise, nondiagnostic for ischemia. 6. Patient was noted to have occasional PAC during rest, stress and recovery, and rare premature rona tricular contraction during stress and recovery, no other malignant arrhythmias noted. 7. During peak exercise, patient's SpO2 dropped down to 87%. 8. BP variations; rest 128/80, peak exercise 160/80. 9. Test was stopped due to maximum effort. 10. Carrillo treadmill score of 3 placing patient at intermediate cardiovascular risk. RECOVERY: Patient recovered for 5 minutes, heart rate returned back to normal, SpO2 did return back within 30 seconds, returned back to 90%, she remained asymptomatic of any symptoms suggesting of isch emia. Vital signs are stable. Patient was taken to Nuclear Medicine for post stress MPI imaging. IMPRESSION: A 71-year-old female with known history of CAD with chronic obstructive pulmonary diseas e undergoing exercise MPI study for evaluation for cardiac ischemia. Poor exercise tolerance, with d esaturation at peak exercise, no significant EKG changes during peak exercise suggesting cardiac isch emia. Occasional PAC, occasional premature ventricular contraction, no other malignant arrhythmias. Patient with a Carrillo treadmill score of 3, placing her at intermediate risk. Recommend further evalu ation by myocardial perfusion imaging. Results of the study discussed with Dr. Owen of [facility]. /[id number]/MODL
[2017-02-24 10:52] VITALS: BP 151/72; PULSE 70; TEMP 97.8
--- NOTE | 2017-02-24 10:52 | ECHO ---
[email or web address] [address] Main: [phone] Fax: [email or web address] Echocardiogram Name: RACHEL AGUIRRE MR#: [id number] Study Date: 02/24/2017 Study Time: 08:01 AM Date of : 1945 Age: 71 year(s) Height: 162.6 cm (64 in.) Weight: 69.4 kg (153 lb.) BSA: 1.75 m2 Gender: Female Examination: Echo Indication: Eval EF, eval for wall motion abnormailites Image Quality: Adequate Contrast: Requested by: Dallas Owen BP: / Heart Rate: Rhythm: Indication: Eval EF, eval for wall motion abnormailites Procedure Staff Telephone Directory Distributor Driver: Collette Ugarte Reading Physician: Susi Mohr Requesting Provider: Conclusions: Normal size left ventricle. Borderline concentric LV hypertrophy. Normal global systolic LV function. EF is 63 %. No regional wall motion abnormality. Normal size right ventricle. Normal RV function. Trivial to mild tricuspid valve regurgitation. The pulmonary artery pressure is normal. Compared with 05/15/2015 no significant change Measurements: Chambers Valvular Assessment AV/MV Valvular Assessment TV/PV Normal Normal Normal Name Value Range Name Value Range Name Value Range IVSd (2D): 1.1 cm (0.6 cm-1.1 AV meanP mmHg ( - ) TR Vmax: 2.27 mm/s ( - ) cm) MV E Vmax: 0.82 m/s ( - ) TR PGmax: 21 mmHg ( - ) LVDd (2D): 4.8 cm (3.9 cm-5.3 MV A Vmax: 0.56 m/s ( - ) syst. PAP: 31 mmHg ( - ) cm) MV E/A: 1.46 ( - ) LVDs (2D): 3.4 cm (2.1 cm-4 MV meanP mmHg ( - ) cm) LVPWd (2D): 1.0 cm ( - ) LVEF (BP): 63 % (>=55 %) Continued Measurements: Chambers Valvular Assessment AV/MV Valvular Assessment TV/PV Name Value Name Value Name Value LADs Lon.5 cm MV DecTime: 197 m/s CVP (est.): 10 mmHg Patient: RACHEL AGUIRRE Study Date: 02/24/2017 Page 1 of 2 08:01 AM LA Area: 12.7 cm2 MV E' Septal: 0.04 m/s LA Volume: 40 ml MV E/E' Septal: 18.30 LA Volume Index: 22.9 ml/m2 MV E/E' Lateral: 9.80 TAPSE: 2.2 cm MV VTI: 15.70 cm Additional Vessels Name Value Ao Ascendin.0 cm Findings: Left Ventricle: Normal size left ventricle. Borderline concentric LV hypertrophy. Normal global systolic LV function. EF is 63 %. No regional wall motion abnormality. Right Ventricle: Normal size right ventricle. Normal RV function. Left Atrium: The left atrium is normal in size. Right Atrium: The right atrium is normal in size. Mitral Valve: The mitral valve is normal in appearance and function. Trivial mitral valve regurgitation. No mitral stenosis is present. Aortic Valve: The aortic valve is normal in appearance and function. There is no aortic valve regurgitation. No aortic valve stenosis is present. Tricuspid Valve: The tricuspid valve is normal in appearance and function. Trivial to mild tricuspid valve regurgitation. The pulmonary artery pressure is normal. Pulmonic Valve: Pulmonary valve not well visualized. Aorta: The aorta is normal. No dilatation of the aorta. IVC: The IVC is normal sized. There is inspiratory collapse of the IVC. Pericardium: No pericardial effusion. There is pericardial fat. (No Signature Object) Patient: RACHEL AGUIRRE Study Date: 02/24/2017 Page 2 of 2 08:01 AM [id number]
--- NOTE | 2017-02-24 11:56 | ASMTCMCOM ---
CM Note CM Note Notes: 02/24/2017 Case Management Note Met w/pt. No case management d/c needs identified d/t pt age, support from friends and activity levels prior to admission. 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 Her parents live in [place], pt reports traveling back and forth on a regular basis to [place] to care for them. Case management d/c poc: Home independent when medically stable with follow up as directed. Case management available if needs change. Date Signed: 02/24/2017 11:55 AM Electronically Signed By:Shweta Toro RN
[2017-02-24] MEDS: SYSTANE OP SCH (12:31)
[2017-02-24] MEDS: EYE OP SCH (12:31)
[2017-02-24] MEDS: LISINOPRIL 10 MG TAB PO SCH (13:43)
--- NOTE | 2017-02-24 16:22 | PDDCSUM ---
Discharge Summary Discharge Summary: DISCHARGE SUMMARY FOLLOW-UP ITEMS: Outpatient repeat pulmonary function tests DATE OF ADMISSION: 02/23/2017 DATE OF DISCHARGE: 02/24/2017 DISCHARGE DIAGNOSES: 1. Acute chest pain 2. Suspected gastroesophageal reflux disease 3. General deconditioning CONSULTATIONS: None PROCEDURES / IMAGING: Echocardiogram demonstrating ejection fraction 63%, left ventricular hypertrophy , normal right ventricle, no significant valvular abnormalities Nuclear medicine draining noticeable ischemia CHIEF COMPLAINT: Acute chest pain SUBJECTIVE: Patient is feeling well at time of discharge, has not experience recurrent symptoms PHYSICAL EXAM ON DISCHARGE: Systolic blood pressure is 121-140, heart rate 70 90, satting 95% on room air, afebrile overnight, lungs are clear to auscultation bilaterally without any expiratory wheezes or bronchial breath sounds, heart rhythm is regular, alert awake oriented x3 LABS ON DISCHARGE: White blood cell count 8600, hemoglobin 13.5, platelets 600800, D-dimer normal , troponin negative x3, creatinine 0.7, liver panel unremarkable, lipase normal HOSPITAL COURSE BY PROBLEM: The patient presented with acute chest pain which warranted further workup and investigation because it was similar in character to the discomfort she has experienced in the past when she has developed Takysubo cardiomyopathy. Consequently, she under went nuclear medicine stress test and also had an echo performed, neither of which demonstrated any inducible ischemia or reduction in her ejection fraction. She was ruled out for pulmonary embolism with a negative D-dimer, ruled out for acute coronary syndrome with normal troponin levels and no ischemic changes on EKG. Consequently, I suspect that the patient 's discomfort may be secondary to gastroesophageal reflux disease, and she has had significant GERD in the past, and is only on an H2 navjot. She reports that she had a significant allergic reaction to a proton pump inhibitor in the past, and, consequently, the treatment I recommended this time is scheduled H2 navjot as well as symptomatic management with Tums and Maalox. She may require outpatient upper endoscopy, but this should be arranged after she has been seen in follow-up by her primary care provider, to reassess whether she continues to experience symptoms. She also has an element of generalized deconditioning, with exertional fatigue and some very mild exertional hypoxia. She is not experience any hypoxia at rest, she does not warrant home supplemental oxygen at rest at this time. She has been ordered for supplemental oxygen with activity elevation as well as nocturnally, by her outpatient optical dispenser. I encouraged the patient to increase her level of physical activity and exercise, and this may help alleviate some of her chest discomfort symptoms, particularly those with exercise. DISCHARGE MEDICATIONS: Please see official discharge medication reconciliation sheet in chart , continue home medications, add as needed Maalox and Tums. DISCHARGE INSTRUCTIONS: Please follow up with primary care provider, as well as your outpatient optical dispenser to have repeat pulmonary function tests if indicated.
== END 2017-02-24 15:00 | disposition home or self-care (01) ==
LOC: F2W 13:20
PROVIDERS: ADMIT Internal Medicine; ATTEND Internal Medicine
DX: R07.9 Chest pain, unspecified (principal); K21.9 Gastro-esophageal reflux disease without esophagitis; I25.10 Atherosclerotic heart disease of native coronary artery without angina pectoris; I51.81 Takotsubo syndrome; J44.9 Chronic obstructive pulmonary disease, unspecified; Z87.891 Personal history of nicotine dependence
CPT/HCPCS: 71010; 78451; 93005; 93017; 93306; A9500; G0378; J1650; J2060

== ENCOUNTER 2017-05-30 19:53 | Inpatient (IN) | payer OTHER ==
--- NOTE | 2017-05-30 20:15 | EDPHY ---
H & P Time Seen by Provider: 05/30/17 20:03 HPI/ROS: CHIEF COMPLAINT: Abdominal/flank pain, hematuria. HISTORY OF PRESENT ILLNESS: This patient is a 71 year old female arriving via EMS from [facility] for evaluation of abdominal pain and hematuria. She woke this morning with pain in her midback and lower abdomen, as well as hematuria and dysuria. She presented to urgent care this morning and was diagnosed with UTI, prescribed Bactrim. When she arrived home she had worsening and severe suprapubic pain and increased hematuria. Associated with multiple episodes of vomiting. She returned to urgent care, where she received Toradol and Zofran IV , which helped to relieve her pain. She has minimal pain and no nausea now. She was then transferred here to the emergency department. She has had prior UTIs, but never with pain like today. She denies history of kidney stones. She denies fever. She did recently travel to [place], and Sunday night, four days ago, she had a diarrheal illness possibly contracted from her mother who had similar symptoms. No chest pain, shortness of breath, headache, lightheadedness , or other associated symptoms. REVIEW OF SYSTEMS: A 10 point review of systems was performed and is negative with the exception of the elements mentioned in the history of present illness. Past Medical/Surgical History: 1. Cholecystectomy 2. Appendectomy 3. Hysterectomy 4. Tonsillectomy 5. Breast biopsies 6. Takotsubo syndrome 7. Prolapsed bladder s/p repair 8. IBS 9. Hypertension 10. COPD Social History: Friend at bedside. Former smoker. Lives in [place]. Smoking Status: Former smoker Physical Exam: General Appearance: Alert, pleasant Eyes: Pupils equal and round, no conjunctival pallor or injection ENT, Mouth: Mucous membranes moist Neck: Normal inspection Respiratory: Lungs are clear to auscultation Cardiovascular: Regular rate and rhythm Gastrointestinal: Abdomen soft, suprapubic tenderness, no peritoneal signs, normal bowel sounds Back: no CVAT Neurological: A&O, nonfocal exam Skin: Warm and dry Extremities: Nontender, no pedal edema Psychiatric: Mood and affect normal Constitutional: Initial Vital Signs Temperature (C) 36.7 C 05/30/17 19:58 Heart Rate 106 H 05/30/17 19:58 Respiratory Rate 18 05/30/17 19:58 Blood Pressure 168/106 H 05/30/17 19:58 O2 Sat (%) 94 05/30/17 19:58 O2 Delivery Mode Nasal Cannula O2 (L/minute) 2 Allergies/Adverse Reactions: esomeprazole magnesium [From Nexium] Allergy (Severe, Verified 05/30/17 20:04) "shock" morphine [Morphine] Allergy (Severe, Verified 05/30/17 20:04) Anaphylaxis NSAIDS (Non-Steroidal Anti-Inflamma Allergy (Mild, Verified 05/30/17 20:04) Cant take because it upsets her stomach olanzapine [From Zyprexa] Allergy (Mild, Verified 05/30/17 20:04) cimetidine [Cimetidine] Allergy (Unknown, Verified 05/30/17 20:04) BRADYCARDIA metronidazole [From Flagyl] Allergy (Unknown, Verified 05/30/17 20:04) Other-Enter Comments Metronidazole HCl [From Flagyl] Allergy (Unknown, Verified 05/30/17 20:04) Other-Enter Comments omeprazole [From Prilosec] Allergy (Unknown, Verified 05/30/17 20:04) Other-Enter Comments omeprazole magnesium [From Prilosec] Allergy (Unknown, Verified 05/30/17 20:04) Other-Enter Comments dexamethasone Allergy (Verified 05/30/17 20:04) latex [Latex] Allergy (Verified 05/30/17 20:04) Rash loperamide [From Imodium A-D] Allergy (Verified 05/30/17 20:04) tobramycin Allergy (Verified 05/30/17 20:04) immodium Allergy (Uncoded 10/29/16 16:29) spandex Allergy (Uncoded 11/30/13 09:52) Home Medications: Medication Instructions Recorded Estrogens,Conjugated [Premarin 1 marlene VG AD 12/11/11 Vaginal (*)] Famotidine [Pepcid 10mg] 10 mg PO BID PRN 12/11/11 Lisinopril [Zestril 10 mg (*)] 10 mg PO BID 12/11/11 Propranolol HCl [Inderal 10mg (*)] 10 mg PO BID 08/18/12 Fluticasone Nasal [Flonase Nasal 2 sprays EACHNARE DAILY 05/25/14 [place]] Dicyclomine [Bentyl 10 MG (*)] 10 mg PO DAILY 04/05/16 Propylene Glycol/Peg 400 [SYSTANE 5 ml OP BID #0 11/09/16 0.3-0.4% EYE DROPS] Albuterol Sulfate [Proair Hfa] 1 inh PO PRN PRN 02/23/17 Acetaminophen [Tylenol ES 500 mg 500 mg PO Q6 PRN 05/30/17 (*)] Multivitamins [Multivitamin (*)] 1 each PO DAILY 05/30/17 Cefpodoxime Proxetil [Vantin] 200 mg PO BID #14 tab 06/01/17 Metoclopramide [Reglan 10 mg tab 10 mg PO QID PRN #30 tab 06/01/17 (*)] Sennosides/Docusate Sodium 1 - 2 tab PO BID PRN #30 tab 06/01/17 [Senokot-S] Medical Decision Making ED Course/Re-evaluation: 71 y/o female presents with lower abdominal pain and hematuria, diagnosed today with UTI. Exam reveals suprapubic tenderness. Clinical presentation consistent with kidney stone, pyelonephritis or alternative etiology. Doubt that she simply has a urinary tract infection, given severe pain and multiple episodes of vomiting. Plan for CT abdomen/pelvis to rule out kidney stone versus pyelonephritis. Called [facility], unable to retrieve urinalysis performed there earlier today. Repeat urinalysis ordered. Declines pain medication at this point. Pain has increased and is now moderate. Repeat abdominal exam is unchanged. Requests pain medication, morphine IV given. CT scan results discussed with the patient. Consistent with early small-bowel obstruction; no evidence ureteral calculus or hydronephrosis. No prior history of small-bowel obstruction. Patient has been unable to provide a urine sample. The hospitalist service was consulted for admission for small-bowel obstruction and possible urinary tract infection. Differential Diagnosis: Differential diagnosis includes though it is not limited to appendicitis, cholecystitis, diverticulitis, pyelonephritis, bowel perforation, small bowel obstruction. - Data Points Laboratory Results: Laboratory Results 05/31/17 05:24 05/31/17 05:24 Medications Given: Discontinued Medications Acetaminophen (Tylenol) 650 mg PO Q4HRS PRN PRN Reason: Pain, Mild/Fever, Can Take PO Stop: 11/26/17 22:10 Last Admin: 05/31/17 17:37 Dose: 650 mg Artificial Tears (Natural Balance Tears) 5 drop OP BID OBDULIA Stop: 11/27/17 10:44 Last Admin: 06/01/17 09:03 Dose: 5 drops Dicyclomine HCl (Bentyl) 10 mg PO DAILY OBDULIA Stop: 11/28/17 08:59 Last Admin: 06/01/17 09:01 Dose: 10 mg Enoxaparin Sodium (Lovenox) 40 mg SC DAILY OBDULIA Stop: 11/27/17 17:59 Last Admin: 06/01/17 09:02 Dose: 40 mg Fluticasone Propionate (Flonase Nasal [place]) 2 sprays EACHNARE DAILY [facility] Stop: 11/27/17 10:44 Last Admin: 06/01/17 09:03 Dose: 2 sprays Hydromorphone HCl (Dilaudid) 0.5 mg IVP EDNOW ONE Stop: 05/30/17 20:58 Last Admin: 05/30/17 21:58 Dose: 0.5 mg Hydromorphone HCl (Dilaudid) 0.2 - 0.4 mg IVP Q2 PRN PRN Reason: Pain, Severe Unable to Take PO Stop: 06/10/17 01:59 Last Admin: 05/31/17 02:10 Dose: 0.4 mg Sodium Chloride (Ns) 1,000 mls @ 0 mls/hr IV EDNOW ONE; Wide Open PRN Reason: Protocol Stop: 05/30/17 20:22 Last Admin: 05/30/17 20:42 Dose: 1,000 mls Dextrose/Sodium Chloride (D5w 1/2 Ns) 1,000 mls @ 100 mls/hr IV CONT OBDULIA Stop: 11/26/17 22:14 Last Admin: 05/31/17 11:50 Dose: 1,000 mls Ceftriaxone Sodium 1 gm/ (Sterile Water) 10 mls @ 150 mls/hr IV DAILY OBDULIA PRN Reason: Protocol Stop: 06/30/17 08:59 Last Admin: 06/01/17 09:02 Dose: 10 mls Magnesium Citrate (Magnesium Citrate) 300 ml PO ONCE ONE Stop: 06/01/17 12:40 Last Admin: 06/01/17 14:06 Dose: 300 ml Multivitamins (Tab-A-Jory) 1 each PO DAILY OBDULIA Stop: 11/28/17 08:59 Last Admin: 06/01/17 09:01 Dose: 1 each Ondansetron HCl (Zofran) 4 mg IVP Q4HRS PRN PRN Reason: Nausea/Vomiting, Can't Take PO Stop: 11/26/17 22:10 Last Admin: 05/31/17 01:38 Dose: 4 mg Oxycodone HCl (Oxycodone Ir) 5 mg PO Q3HRS PRN PRN Reason: Pain, Severe Able to Take PO Stop: 06/09/17 22:10 Last Admin: 05/31/17 00:52 Dose: 5 mg Propranolol HCl (Inderal) 10 mg PO BID OBDULIA Stop: 11/27/17 10:44 Last Admin: 06/01/17 09:01 Dose: 10 mg Senna/Docusate Sodium (Senokot-S) 1 - 2 tab PO BID OBDULIA PRN Reason: Protocol Stop: 11/27/17 10:44 Last Admin: 06/01/17 09:02 Dose: 1 tab Departure - Departure Disposition: [facility] Inpatient Acute Clinical Impression: Small bowel obstruction Condition: Good Report Scribed for: Viviana Castellanos Report Scribed by: Carolyn Sims Date of Report: 05/30/17 Time of Report: 20:15 Physician Review and Approval Statement: 05/30/17 20:15 Portions of this note were transcribed by a electromedical service engineer. I personally performed a history, physical exam, medical decision making, and confirmed accuracy of information the transcribed note.
[2017-05-30] MEDS ORDERED: NS 1,000 ML IV ONE (20:21)
[2017-05-30] MEDS ORDERED: HYDROmorphONE/DILAUDID 1 MG/ML INJ IVP ONE (20:57)
[2017-05-30 20:58] LABS: PLATELET COUNT 389 10^3/uL (150-400)
[2017-05-30] MEDS ORDERED: ONDANSETRON 4 MG/2 ML VIAL IVP PRN (22:11)
[2017-05-30] MEDS ORDERED: ONDANSETRON DISINTEGRATING 4 MG TAB PO PRN (22:11)
[2017-05-30] MEDS ORDERED: oxyCODONE IR 5 MG TAB PO PRN (22:11)
--- NOTE | 2017-05-30 23:17 | PDGENHP ---
History and Physical - Chief Complaint Abdominal pain - History of Present Illness 71 yo F w/ hx of Takotsubo's presents with abdominal pain. Patient has been suffering from a diarrheal illness for about a week after visiting her mother who was experiencing similar symptoms. Initially she was having frequent, severe diarrhea. Frequency of stools have improved but patient is still having large volume, watery diarrhea few times a day. Then today she developed dysuria and hematuria and presented to [facility] where she was diagnosed with a UTI and prescribed Bactrim. She went home and developed severe abdominal pain and nausea; she then presented to the ED here. Once here CT A/P was notable for likely early SBO in the setting of prior surgical adhesions. Patient is being admitted for treatment of SBO, UTI, and diarrheal illness. History Information - Allergies/Home Medication List Allergies/Adverse Reactions: esomeprazole magnesium [From Nexium] Allergy (Severe, Verified 05/30/17 20:04) "shock" morphine [Morphine] Allergy (Severe, Verified 05/30/17 20:04) Anaphylaxis NSAIDS (Non-Steroidal Anti-Inflamma Allergy (Mild, Verified 05/30/17 20:04) Cant take because it upsets her stomach olanzapine [From Zyprexa] Allergy (Mild, Verified 05/30/17 20:04) cimetidine [Cimetidine] Allergy (Unknown, Verified 05/30/17 20:04) BRADYCARDIA metronidazole [From Flagyl] Allergy (Unknown, Verified 05/30/17 20:04) Other-Enter Comments Metronidazole HCl [From Flagyl] Allergy (Unknown, Verified 05/30/17 20:04) Other-Enter Comments omeprazole [From Prilosec] Allergy (Unknown, Verified 05/30/17 20:04) Other-Enter Comments omeprazole magnesium [From Prilosec] Allergy (Unknown, Verified 05/30/17 20:04) Other-Enter Comments dexamethasone Allergy (Verified 05/30/17 20:04) latex [Latex] Allergy (Verified 05/30/17 20:04) Rash loperamide [From Imodium A-D] Allergy (Verified 05/30/17 20:04) tobramycin Allergy (Verified 05/30/17 20:04) immodium Allergy (Uncoded 10/29/16 16:29) spandex Allergy (Uncoded 11/30/13 09:52) Home Medications: Estrogens,Conjugated [Premarin Vaginal (*)] 1 marlene VG AD 12/11/11 [Last Taken 3 Days Ago ~05/27/17] Famotidine [Pepcid 10mg] 10 mg PO BID PRN 12/11/11 [Last Taken 05/30/17] Lisinopril [Zestril 10 mg (*)] 10 mg PO BID 12/11/11 [Last Taken 05/30/17 09:00] Propranolol HCl [Inderal 10mg (*)] 10 mg PO BID 08/18/12 [Last Taken 05/30/17 18 :00] Diphenoxylate HCl/Atrop Sulf [Lomotil Tab (*)] 1 tab PO Q6H 05/25/14 [Last Taken 05/30/17] Fluticasone Nasal [Flonase Nasal [place]] 2 sprays EACHNARE DAILY 05/25/14 [Last Taken 05/30/17] Dicyclomine [Bentyl 10 MG (*)] 10 mg PO DAILY 04/05/16 [Last Taken 05/30/17] Propylene Glycol/Peg 400 [SYSTANE 0.3-0.4% EYE DROPS] 5 ml OP BID #0 11/09/16 [ Last Taken 05/30/17 09:00] Albuterol Sulfate [Proair Hfa] 1 inh PO PRN PRN 02/23/17 [Last Taken 1 Month Ago ~04/29/17] Acetaminophen [Tylenol ES 500 mg (*)] 500 mg PO Q6 PRN 05/30/17 [Last Taken ] Multivitamins [Multivitamin (*)] 1 each PO DAILY 05/30/17 [Last Taken 05/30/17] I have personally reviewed and updated: family history, medical history - Past Medical History GERD Additional medical history: Nonischemic cardiomyopathy beginning in 2007 with reduced ejection fraction felt to be possibly secondary to vasospasm and normal cardiac catheterization at that time, recurrent episode of nonischemic cardiomyopathy in 2010 with ejection fraction 25%, normal cardiac catheterization at that time, recovery of ejection fraction, and then recurrence again in 2012 - Surgical History Reports: appendectomy, cholecystectomy, hysterectomy Additional surgical history: Previous cardiac catheterizations - Family History Additional family history: Patient's parents are both living and in their 90s - Social History Smoking Status: Former smoker Additional social history: Normally walks several miles several times weekly Review of Systems Review of Systems: ROS: 10pt was reviewed & negative except for what was stated in HPI & below Physical Exam Physical Exam: Temp Pulse Resp BP Pulse Ox 36.7 C 101 H 18 156/76 H 91 L 05/30/17 19:58 05/30/17 22:30 05/30/17 22:30 05/30/17 22:30 05/30/17 22:30 Constitutional: no apparent distress, not in pain Eyes: PERRL, EOMI Ears, Nose, Mouth, Throat: moist mucous membranes, no oral mucosal ulcers Cardiovascular: regular rate and rhythym, no murmur, rub, or gallop Respiratory: no respiratory distress, clear to auscultation Gastrointestinal: normoactive bowel sounds, tenderness (Suprapubic), No guarding , No rebound, No distension Skin: warm, normal color Musculoskeletal: full muscle strength, no muscle tenderness Neurologic: AAOx3, CN II-XII Intact Psychiatric: interacting appropriately, not anxious Lab Data & Imaging Review 05/30/17 20:40 05/30/17 20:40 WBC 19.68 10^3/uL (3.80-9.50) H 05/30/17 20:40 RBC 5.13 10^6/uL (4.18-5.33) 05/30/17 20:40 Hgb 15.6 g/dL (12.6-16.3) 05/30/17 20:40 Hct 45.2 % (38.0-47.0) 05/30/17 20:40 MCV 88.1 fL (81.5-99.8) 05/30/17 20:40 MCH 30.4 pg (27.9-34.1) 05/30/17 20:40 MCHC 34.5 g/dL (32.4-36.7) 05/30/17 20:40 RDW 12.6 % (11.5-15.2) 05/30/17 20:40 Plt Count 389 10^3/uL (150-400) 05/30/17 20:40 MPV 9.0 fL (8.7-11.7) 05/30/17 20:40 Neut % (Auto) 85.6 % (39.3-74.2) H 05/30/17 20:40 Lymph % (Auto) 9.4 % (15.0-45.0) L 05/30/17 20:40 [place] % (Auto) 3.7 % (4.5-13.0) L 05/30/17 20:40 Eos % (Auto) 0.5 % (0.6-7.6) L 05/30/17 20:40 Baso % (Auto) 0.3 % (0.3-1.7) 05/30/17 20:40 Nucleat RBC Rel Count 0.0 % (0.0-0.2) 05/30/17 20:40 Absolute Neuts (auto) 16.84 10^3/uL (1.70-6.50) H 05/30/17 20:40 Absolute Lymphs (auto) 1.85 10^3/uL (1.00-3.00) 05/30/17 20:40 Absolute Monos (auto) 0.73 10^3/uL (0.30-0.80) 05/30/17 20:40 Absolute Eos (auto) 0.10 10^3/uL (0.03-0.40) 05/30/17 20:40 Absolute Basos (auto) 0.06 10^3/uL (0.02-0.10) 05/30/17 20:40 Absolute Nucleated RBC 0.00 10^3/uL (0-0.01) 05/30/17 20:40 Immature Gran % 0.5 % (0.0-1.1) 05/30/17 20:40 Immature Gran # 0.10 10^3/uL (0.00-0.10) 05/30/17 20:40 Sodium 137 mEq/L (135-145) 05/30/17 20:40 Potassium 5.3 mEq/L (3.5-5.2) H 05/30/17 20:40 Chloride 100 mEq/L (97-110) 05/30/17 20:40 Carbon Dioxide 23 mEq/l (22-31) 05/30/17 20:40 Anion Gap 14 mEq/L (8-16) 05/30/17 20:40 BUN 12 mg/dL (7-23) 05/30/17 20:40 Creatinine 0.7 mg/dL (0.6-1.0) 05/30/17 20:40 Estimated GFR > 60 05/30/17 20:40 Glucose 125 mg/dL (70-100) H 05/30/17 20:40 Calcium 10.1 mg/dL (8.5-10.4) 05/30/17 20:40 Specimen Hemolysis 173 05/30/17 20:40 Imaging Review: Imaging Impressions Abdomen/Pelvis CT 05/30/17 20:21 Impression: 1. There is no CT evidence of nephrolithiasis or obstructive uropathy. 2. Abnormal appearance of small bowel (fluid-filled and partially fecalized distally) with a transitional zone in the ileum near some surgical clips in this patient who has had a prior appendectomy and hysterectomy, with relative decompression of the terminal ileum and colon. Features suggest a partial or early small bowel obstruction, likely on the basis of adhesions. 3. Status post cholecystectomy. Attention: This CT examination is specifically designed to evaluate patients who are clinically suspected of having acute obstructive uropathy. This examination does not use radiographic contrast, and as such, provides only a limited evaluation of the abdomen, pelvis, and retroperitoneum. If there is further clinical suspicion for pathological conditions other than obstructive uropathy, a complete CT evaluation of the abdomen and pelvis utilizing intravenous, oral, and rectal contrast should be considered. Findings were discussed with LOULOU TEMPLE MD at 21:16, on 05/30/2017. Assessment & Plan Assessment: 71 yo F w/ hx of Takotsubo's presents with abdominal pain and found to have partial SBO as well as UTI. Plan: 1. Partial SBO - In the setting of prior surgical adhesions from hysterectomy. Symptoms present for only 1 day but in the setting of 1 week of diarrheal illness. - NPO, ADAT, mIVF - Abdominal XR in the AM 2. UTI - Dysuria x1 day, diagnosed at [facility] with UTI and started on Bactrim. - Repeat UA, CTX 1g qD while here 3. Diarrheal illness - Symptoms x1 week after sick contact w/ similar symptoms. Severity has improved but persists. - mIVF - GI PCR 4. Hx Takotsubo's - Nonischemic cardiomyopathy beginning in 2007 with reduced ejection fraction felt to be possibly secondary to vasospasm and normal cardiac catheterization at that time, recurrent episode of nonischemic cardiomyopathy in 2010 with ejection fraction 25%, normal cardiac catheterization at that time , recovery of ejection fraction, and then recurrence again in 2013. Appears compensated currently. Diet - NPO, ADAT Code - Full Ppx - SCDs Dispo - Admit to observation status
[2017-05-31] MEDS: D5W 1/2 NS 1,000 ML IV SCH ×2 (00:52→11:50)
[2017-05-31] MEDS ORDERED: CALCIUM CARBONATE 500 MG CHEWABLE TAB PO PRN (01:59)
[2017-05-31] MEDS ORDERED: HYDROmorphONE/DILAUDID 1 MG/ML INJ IVP PRN (02:00)
[2017-05-31 05:39] LABS: PLATELET COUNT 353 10^3/uL (150-400)
[2017-05-31] MEDS: cefTRIAXone 1 GM in STERILE WATER INJ 10 ML IV SCH (09:41)
[2017-05-31] MEDS: ACETAMINOPHEN 325 MG TAB PO PRN ×2 (09:47→17:37)
[2017-05-31] MEDS ORDERED: METOCLOPRAMIDE 10 MG TAB PO PRN (10:35)
[2017-05-31] MEDS ORDERED: METOCLOPRAMIDE 10 MG/2 ML VIAL IVP PRN (10:35)
[2017-05-31] MEDS ORDERED: POLYETHYLENE GLYCOL 3350 17 GM PKT PO PRN (10:36)
[2017-05-31] MEDS ORDERED: FAMOTIDINE 10 MG PO PRN (10:36)
[2017-05-31] MEDS ORDERED: BISACODYL 10 MG SUPP PR PRN (10:36)
[2017-05-31] MEDS ORDERED: MAGNESIUM HYDROXIDE 30 ML UDCUP PO PRN (10:36)
[2017-05-31] MEDS ORDERED: ALBUTEROL INH PREPACK MDI TAKEHOME PRN (10:36)
[2017-05-31] MEDS ORDERED: LACTULOSE 20 GM/30 ML UDCUP PO PRN (10:36)
[2017-05-31] MEDS ORDERED: FAMOTIDINE 20 MG TAB PO PRN (10:55)
[2017-05-31] MEDS ORDERED: ALBUTEROL 60 PUFFS/8 GM MDI IH PRN (10:56)
[2017-05-31] MEDS: TEARS/DEXTRAN 70/HYPROMELLOSE 15 ML OPHT.BTL OP SCH ×2 (11:46→21:49)
[2017-05-31] MEDS: FLUTICASONE NASAL 120 SPRAYS/16 GM MDI EACHNARE SCH (11:48)
[2017-05-31] MEDS: SENNOSIDES/DOCUSATE SODIUM TAB PO SCH ×2 (11:48→21:48)
[2017-05-31] MEDS: PROPRANOLOL HCL 10 MG TAB PO SCH ×2 (12:28→21:47)
--- NOTE | 2017-05-31 16:07 | PDMN ---
Medical Necessity Medical necessity: M210 intestinal obstruction - partial SBO with possible pyelonephritis
--- NOTE | 2017-05-31 17:47 | HOSPPROG ---
Hospitalist Progress Note Assessment/Plan: Assessment: 71 yo F p/w acute partial SBO and suspected pyelonephritis Plan: 1. Partial SBO - Acute, present on CT, in setting of suspected viral gastroenteritis - a-xray this AM suboptimal given position - clinically improving w/ clears, advancing diet as jose but does remain limited - cont PRN pain Rx, IVF for supportive care - hold on NGT 2. Suspected pyelonephritis - Sx include hematuria, flank pain, severe leukocytosis, reportedly positive UA at [facility] [place] [place] (outside records ordered) - monitor UCx - cont IV CTX, consider 7-10 course cefpodoxime - counseled patient extensively regarding the issues outlined above, reviewed x- ray images w/ patient 3. Chronic systolic CHF. No e/o acute exacerbation, hx of Takasubo's w/ recurrent low EF 20-30% - monitor weights on IVF Diet - Clears Code - Full Ppx - Lovenox 40 Dispo - Upgrade to inpatient admission status re: anticipated LOS > 48hrs for reasonable medical necessity including partial SBO requiring bowel rest, likely pyelo complicating symptoms. Subjective: less nauseated, less pain, not hungry Objective: Vital Signs Temp Pulse Resp BP Pulse Ox 36.6 C 66 16 118/63 96 05/31/17 15:03 05/31/17 15:03 05/31/17 15:03 05/31/17 15:03 05/31/17 15:03 05/30/17 05/31/17 06/01/17 05:59 05:59 05:59 Intake Total 2250 Balance 2250 - Time Spent With Patient Time Spent with Patient: greater than 35 minutes Time Spent with Patient: Greater than 35 minutes spent on this patients care, greater than 50% of time spent counseling, educating, and coordinating care regarding the above mentioned plan. - Physical Exam Constitutional: no apparent distress, uncomfortable Cardiovascular: regular rate and rhythym, no murmur, rub, or gallop, No edema Respiratory: no respiratory distress, no rales or rhonchi, clear to auscultation Gastrointestinal: tenderness (mild to mod depth palpation), distension (mild), No normoactive bowel sounds (hypoactive bowel sounds), No guarding Neurologic: AAOx3 Psychiatric: interacting appropriately, not anxious, not encephalopathic, thought process linear ICD10 Worksheet Patient Problems: Problems Problem Status Onset Cystocele, midline Acute Chest pain Acute Abdominal pain Acute Possible urinary tract infection Acute Left flank pain Acute Small bowel obstruction Acute
[2017-05-31] MEDS: ENOXAPARIN 40 MG/0.4 ML SYR SC SCH (18:41)
[2017-06-01 05:42] LABS: PLATELET COUNT 255 10^3/uL (150-400)
[2017-06-01 08:21] VITALS: BP 142/64; PULSE 81; RESP 18; TEMP 98.1; O2SAT 93
[2017-06-01] MEDS ORDERED: DICYCLOMINE 10 MG CAP PO SCH (09:00)
[2017-06-01] MEDS ORDERED: MULTIVITAMINS 1 EACH TAB PO SCH (09:00)
[2017-06-01] MEDS: PROPRANOLOL HCL 10 MG TAB PO SCH (09:01)
[2017-06-01] MEDS: ENOXAPARIN 40 MG/0.4 ML SYR SC SCH (09:02)
[2017-06-01] MEDS: cefTRIAXone 1 GM in STERILE WATER INJ 10 ML IV SCH (09:02)
[2017-06-01] MEDS: SENNOSIDES/DOCUSATE SODIUM TAB PO SCH (09:02)
[2017-06-01] MEDS: TEARS/DEXTRAN 70/HYPROMELLOSE 15 ML OPHT.BTL OP SCH (09:03)
[2017-06-01] MEDS: FLUTICASONE NASAL 120 SPRAYS/16 GM MDI EACHNARE SCH (09:03)
[2017-06-01] MEDS ORDERED: MAGNESIUM CITRATE 300 ML BOTTLE PO ONE (12:39)
--- NOTE | 2017-06-01 13:58 | PDDCSUM ---
Discharge Summary Discharge Summary: DISCHARGE SUMMARY FOLLOW-UP ITEMS: Consider outpatient Urology follow-up if patient continues to experience hematuria DATE OF ADMISSION: 05/30/2017 DATE OF DISCHARGE: 06/01/2017 DISCHARGE DIAGNOSES: 1. Acute partial small-bowel obstruction 2. Suspected viral gastroenteritis 3. Suspected pyelonephritis 3. Chronic systolic congestive heart failure 4. Opiate induced constipation CONSULTATIONS: None PROCEDURES / IMAGING: None CHIEF COMPLAINT: Acute abdominal pain, hematuria, dysuria, nausea and vomiting SUBJECTIVE: Patient is feeling well at time of discharge, she has moved her bowels prior to discharge, minimal nausea PHYSICAL EXAM ON DISCHARGE: Systolic blood pressure 142, heart rate 81, afebrile overnight, alert awake oriented x3, bowel sounds are hypoactive, abdomen is soft, mildly distended with mild tenderness to moderate palpation LABS ON DISCHARGE: White blood count 7500, hemoglobin 12.5, creatinine 0.7, liver panel unremarkable HOSPITAL COURSE BY PROBLEM: 1. Acute partial small-bowel obstruction. Evidenced by hypoactive bowel sounds , absent flatus, dilated loops of bowel on abdominal CT, most likely secondary to bowel irritation in the setting of viral gastroenteritis which occurred prior to this presentation. The patient received bowel rest, as needed antiemetics and pain medications, IV fluids, and she did not require nasogastric tube. Her diet was gently advanced, and she is tolerating a solid diet, bland on the day of discharge. She is also voiding pain medications and antiemetics, and she is severely afraid of they are constipating effects. I believe that after her small-bowel obstruction resolved and the patient was passing flatus, the patient was experiencing some opiate induced constipation, as well as some sensitivity to Bentyl and Zofran. She received as needed Reglan , and a stool softener, but required magnesium citrate order to accomplish a bowel movement. She had a BM and was passing flatus prior to discharge. 2. Suspected pyelonephritis. Patient presented to [facility] with symptoms including hematuria, flank pain, severe leukocytosis, reportedly positive urinalysis but not available in our system, and she was placed on antibiotics. Given the patient's constellation of symptoms as well as leukocytosis and flank pain, I am concerned about possible pyelonephritis and will provide her with ongoing antibiotic therapy beyond this hospitalization. She received 2 days of IV ceftriaxone during this hospitalization and she will receive 7 subsequent days of oral cefpodoxime. I did check her urine culture from [facility] there was no growth at the time of this summary. The patient has only had 1 episode of hematuria that was most likely secondary to this infection, but she is very concerned about the possibility of bladder cancer as 1 of her friends recently was diagnosed. I provided the patient with the contact information for Dr. Randall at [facility] for further evaluation if so desired. 3. Chronic systolic congestive heart failure. No evidence of acute exacerbation, the patient does have recurrently low ejection fraction between 20 and 30%, did not demonstrate any evidence of edema during this hospitalization. DISCHARGE MEDICATIONS: Please see official discharge medication reconciliation sheet in chart , cefpodoxime 200 mg twice daily x7 days, as needed Reglan, continue other medications. DISCHARGE INSTRUCTIONS: Please follow-up with your primary care provider and [facility] if desired. TIME SPENT: Greater than 30 minutes were spent on direct patient care, as well as discharge planning and preparation. The patient and I spent a great deal of time discussing her specific diagnoses above and we did the teach-back method.
--- NOTE | 2017-06-02 15:14 | ASDISCHSUM ---
Discharge Information Plan Status: Medically Cleared to Leave: Discharge Date:06/01/2017 04:20 PM CM D/C Disposition: ADT D/C Disposition:Home, Routine, Self-Care Projected Discharge Date:06/01/2017 04:20 PM Transportation at D/C: Discharge Delay Reason: Follow-Up Date:06/01/2017 04:20 PM Discharge Slot: Final Diagnosis: Placement Information Patient Contact Information Contact Name:KARI Relationship:Friend Address: City:[place] Alternate Phone: State/[place] Code:[place] Email: Financial Information Financial Class:O and PPO Plans Primary Plan Desc:[employer] [place] [employer] Primary Plan Number:[id number] Secondary Plan Desc: Secondary Plan Number: Assessment Information Intervention Information
[2017-06-03] MEDS ORDERED: ESTROGENS,CONJUGATED 30 GM CRTUBE VG SCH (21:00)
== END 2017-06-01 16:20 | disposition home or self-care (01) | DRG 389 ==
LOC: EDUNIT# → F1N 05-31 00:08 → OBSVTOIN 05-31 10:45
PROVIDERS: ADMIT Family Medicine; ATTEND Family Medicine
DX: K56.600 Partial intestinal obstruction, unspecified as to cause (principal); N12 Tubulo-interstitial nephritis, not specified as acute or chronic; I50.22 Chronic systolic (congestive) heart failure; K52.9 Noninfective gastroenteritis and colitis, unspecified; K59.03 Drug induced constipation; T50.7X5A Adverse effect of analeptics and opioid receptor antagonists, initial encounter; J44.9 Chronic obstructive pulmonary disease, unspecified; Z87.891 Personal history of nicotine dependence
CPT/HCPCS: G0378; J0696; J1170; J1650; J2405

== ENCOUNTER 2017-06-15 17:06 | Emergency (ER) | payer OTHER ==
--- NOTE | 2017-06-15 19:09 | EDPHY ---
H & P Time Seen by Provider: 06/15/17 18:18 HPI/ROS: CHIEF COMPLAINT: Right flank pain, abdominal pain, urinary frequency HISTORY OF PRESENT ILLNESS: 71-year-old female presents to the emergency department by private vehicle with concerns about recurring kidney infection. Patient was seen in the emergency department 2 weeks ago and had similar symptoms of flank pain and abdominal pain. She at the time however also had vomiting and diarrhea. She was admitted to the hospital with acute partial small-bowel obstruction, pyelonephritis, and viral gastroenteritis. She was admitted to the hospital and then discharged home with Heather. She took the medication as prescribed. She states that she had a few tablets left over and then today took 1 tablet. No fevers or chills. No nausea or vomiting now. She feels that her symptoms are exactly the same as when she presented 2 weeks ago with the exception of now right flank pain. No chest pain or difficulty breathing. No headache. No left-sided back pain. REVIEW OF SYSTEMS: Constitutional: No fever, no chills. Eyes: No double or blurry vision. ENT: No sore throat. Respiratory: No cough, no shortness of breath. Cardiac: No chest pain. Gastrointestinal: abdominal pain. No vomiting, diarrhea. Genitourinary: Urinary frequency, urgency Musculoskeletal: No neck or back pain. Skin: No rashes. Neurological: No headache. Past Medical/Surgical History: Cholecystectomy, appendectomy, hysterectomy, tonsillectomy, breast biopsies, takotsubo cardiomyopathy, bladder prolapse with bladder sling surgery, IBS, hypertension, COPD Social History: Single and lives in [place] Smoking Status: Former smoker Physical Exam: General Appearance: Alert, no distress. Afebrile. Blood pressure 175/100, heart rate initially 122, respirations 20, 92% on room air. Temperature 37.0 Eyes: Pupils equal and round. Extraocular motions are all intact. ENT: Mouth: Mucous membranes moist. Respiratory: No wheezing, rhonchi, or rales, lungs are clear to auscultation. Cardiovascular: Regular rate and rhythm. Gastrointestinal: Abdomen is soft. She has diffuse, mild tenderness with palpation in the lower abdomen. There is no rebound, guarding or masses noted. No CVA tenderness bilaterally. Neurological: Alert and oriented x 3, cranial nerves II through XII grossly intact Skin: Warm and dry, no rashes. Musculoskeletal: Nontender to palpate along the cervical, thoracic or lumbar spine. Neck is supple. Extremities: Full range of motion and no peripheral edema. Psychiatric: Patient is oriented X 3, there is no agitation. Constitutional: Initial Vital Signs Temperature (C) 37.0 C 06/15/17 17:17 Heart Rate 122 H 06/15/17 17:17 Respiratory Rate 20 06/15/17 17:17 Blood Pressure 175/100 H 06/15/17 17:17 O2 Sat (%) 92 06/15/17 17:17 O2 Delivery Mode Room Air Allergies/Adverse Reactions: esomeprazole magnesium [From Nexium] Allergy (Severe, Verified 05/30/17 20:04) "shock" morphine [Morphine] Allergy (Severe, Verified 05/30/17 20:04) Anaphylaxis NSAIDS (Non-Steroidal Anti-Inflamma Allergy (Mild, Verified 05/30/17 20:04) Cant take because it upsets her stomach olanzapine [From Zyprexa] Allergy (Mild, Verified 05/30/17 20:04) cimetidine [Cimetidine] Allergy (Unknown, Verified 05/30/17 20:04) BRADYCARDIA metronidazole [From Flagyl] Allergy (Unknown, Verified 05/30/17 20:04) Other-Enter Comments Metronidazole HCl [From Flagyl] Allergy (Unknown, Verified 05/30/17 20:04) Other-Enter Comments omeprazole [From Prilosec] Allergy (Unknown, Verified 05/30/17 20:04) Other-Enter Comments omeprazole magnesium [From Prilosec] Allergy (Unknown, Verified 05/30/17 20:04) Other-Enter Comments dexamethasone Allergy (Verified 05/30/17 20:04) latex [Latex] Allergy (Verified 05/30/17 20:04) Rash loperamide [From Imodium A-D] Allergy (Verified 05/30/17 20:04) tobramycin Allergy (Verified 05/30/17 20:04) immodium Allergy (Uncoded 10/29/16 16:29) spandex Allergy (Uncoded 11/30/13 09:52) Home Medications: Medication Instructions Recorded Estrogens,Conjugated [Premarin 1 marlene VG AD 12/11/11 Vaginal (*)] Famotidine [Pepcid 10mg] 10 mg PO BID PRN 12/11/11 Lisinopril [Zestril 10 mg (*)] 10 mg PO BID 12/11/11 Propranolol HCl [Inderal 10mg (*)] 10 mg PO BID 08/18/12 Fluticasone Nasal [Flonase Nasal 2 sprays [place] DAILY 05/25/14 [place]] Dicyclomine [Bentyl 10 MG (*)] 10 mg PO DAILY 04/05/16 Propylene Glycol/Peg 400 [SYSTANE 5 ml OP BID #0 11/09/16 0.3-0.4% EYE DROPS] Albuterol Sulfate [Proair Hfa] 1 inh PO PRN PRN 02/23/17 Acetaminophen [Tylenol ES 500 mg 500 mg PO Q6 PRN 05/30/17 (*)] Multivitamins [Multivitamin (*)] 1 each PO DAILY 05/30/17 Cefpodoxime Proxetil [Vantin] 200 mg PO BID #14 tab 06/01/17 Metoclopramide [Reglan 10 mg tab 10 mg PO QID PRN #30 tab 06/01/17 (*)] Sennosides/Docusate Sodium 1 - 2 tab PO BID PRN #30 tab 06/01/17 [Senokot-S] Medical Decision Making - Diagnostics Imaging Results: Imaging Impressions Abdomen CT 06/15/17 19:55 Impression: No acute findings. Findings discussed with Deneen Smith PA-C, on 06/15/2017 at 20:36. Imaging: Discussed imaging studies w/ call center operations manager Radiologist ED Course/Re-evaluation: 71-year-old female presents to the emergency department with lower abdominal pain, right flank pain and urinary urgency and frequency. The patient is concerned about recurring kidney infection. IV was established patient had laboratory studies drawn which were normal limits. Her urinalysis only revealed 3-5 red blood cells. No bacteria or white blood cells in her urine. The patient feels that these symptoms are the same symptoms that she had 2 weeks ago when she had a small-bowel obstruction as well as pyelonephritis. CT imaging of the abdomen pelvis was ordered which revealed no evidence of small -bowel obstruction, kidney stones or evidence of pyelonephritis. Urine culture [address] Alex Mendoza, secondary supervising physician, who did not directly evaluate the patient but agrees with treatment and plan. Differential Diagnosis: Including but not limited to urinary tract infection, pyelonephritis, kidney stone, small-bowel obstruction, acute appendicitis, diverticulitis - Data Points Laboratory Results: Laboratory Results 06/15/17 19:30 06/15/17 19:30 06/15/17 06/15/17 06/15/17 19:30 19:30 19:30 WBC 9.65 10^3/uL H 10^3/uL (3.80-9.50) RBC 5.09 10^6/uL 10^6/uL (4.18-5.33) Hgb 15.3 g/dL g/dL (12.6-16.3) Hct 45.2 % % (38.0-47.0) MCV 88.8 fL fL (81.5-99.8) MCH 30.1 pg pg (27.9-34.1) MCHC 33.8 g/dL g/dL (32.4-36.7) RDW 12.5 % % (11.5-15.2) Plt Count 326 10^3/uL 10^3/uL (150-400) MPV 8.6 fL L fL (8.7-11.7) Neut % (Auto) 67.4 % % (39.3-74.2) Lymph % (Auto) 23.4 % % (15.0-45.0) [place] % (Auto) 6.9 % % (4.5-13.0) Eos % (Auto) 1.6 % % (0.6-7.6) Baso % (Auto) 0.6 % % (0.3-1.7) Nucleat RBC Rel Count 0.0 % % (0.0-0.2) Absolute Neuts (auto) 6.50 10^3/uL 10^3/uL (1.70-6.50) Absolute Lymphs (auto) 2.26 10^3/uL 10^3/uL (1.00-3.00) Absolute Monos (auto) 0.67 10^3/uL 10^3/uL (0.30-0.80) Absolute Eos (auto) 0.15 10^3/uL 10^3/uL (0.03-0.40) Absolute Basos (auto) 0.06 10^3/uL 10^3/uL (0.02-0.10) Absolute Nucleated RBC 0.00 10^3/uL 10^3/uL (0-0.01) Immature Gran % 0.1 % % (0.0-1.1) Immature Gran # 0.01 10^3/uL 10^3/uL (0.00-0.10) Sodium 143 mEq/L mEq/L (135-145) Potassium 3.9 mEq/L mEq/L (3.5-5.2) Chloride 107 mEq/L mEq/L (97-110) Carbon Dioxide 19 mEq/l L mEq/l (22-31) Anion Gap 17 mEq/L H mEq/L (8-16) BUN 8 mg/dL mg/dL (7-23) Creatinine 0.6 mg/dL mg/dL (0.6-1.0) Estimated GFR > 60 Glucose 139 mg/dL H mg/dL (70-100) Calcium 10.3 mg/dL mg/dL (8.5-10.4) Urine Color Urine Appearance Urine pH Ur Specific [place] Urine Protein Urine Ketones Urine Blood Urine Nitrate Urine Bilirubin Urine Urobilinogen Ur Leukocyte Esterase Urine RBC 3-5 /hpf H /hpf (0-3) Urine WBC NONE SEEN /hpf /hpf (0-3) Ur Epithelial Cells NONE SEEN /lpf /lpf (NONE-1+) Urine Glucose 06/15/17 18:05 WBC RBC Hgb Hct MCV MCH MCHC RDW Plt Count MPV Neut % (Auto) Lymph % (Auto) [place] % (Auto) Eos % (Auto) Baso % (Auto) Nucleat RBC Rel Count Absolute Neuts (auto) Absolute Lymphs (auto) Absolute Monos (auto) Absolute Eos (auto) Absolute Basos (auto) Absolute Nucleated RBC Immature Gran % Immature Gran # Sodium Potassium Chloride Carbon Dioxide Anion Gap BUN Creatinine Estimated GFR Glucose Calcium Urine Color PALE YELLOW Urine Appearance HAZY Urine pH 5.0 (5.0-7.5) Ur Specific [place] 1.004 (1.002-1.030) Urine Protein NEGATIVE (NEGATIVE) Urine Ketones NEGATIVE (NEGATIVE) Urine Blood NEGATIVE (NEGATIVE) Urine Nitrate NEGATIVE (NEGATIVE) Urine Bilirubin NEGATIVE (NEGATIVE) Urine Urobilinogen NEGATIVE EU EU (0.2-1.0) Ur Leukocyte Esterase NEGATIVE (NEGATIVE) Urine RBC Urine WBC Ur Epithelial Cells Urine Glucose NEGATIVE (NEGATIVE) Departure - Departure Disposition: Home, Routine, Self-Care Clinical Impression: Abdominal pain Qualifiers: Abdominal location: lower abdomen, unspecified Qualified Code(s): R10.30 - Lower abdominal pain, unspecified Condition: Good Instructions: Acute Abdominal Pain (ED) Additional Instructions: Call [phone] for the results of your urine culture in 48 hr. Abdominal Pain: Return to the Emergency Department immediately for increasing pain, fever, vomiting, or if not completely better in 8-12 hours. Referrals: Tayo Lai [Primary Care Provider] - 1-2 days without fail
[2017-06-15 19:47] LABS: PLATELET COUNT 326 10^3/uL (150-400)
[2017-06-15] MEDS ORDERED: IOPAMIDOL (ISOVUE-300) 100 ML BTL ONE (20:08)
[2017-06-15 20:32] VITALS: BP 169/87; PULSE 115; RESP 18; O2SAT 95
[2017-06-15 21:32] VITALS: TEMP 98.1
== END 2017-06-15 21:34 | disposition home or self-care (01) ==
DX: R10.30 Lower abdominal pain, unspecified (principal); I10 Essential (primary) hypertension; J44.9 Chronic obstructive pulmonary disease, unspecified; Z87.891 Personal history of nicotine dependence; Z90.49 Acquired absence of other specified parts of digestive tract; Z90.710 Acquired absence of both cervix and uterus; Z91.040 Latex allergy status
CPT/HCPCS: Q9967

== ENCOUNTER → 2017-08-24 | Outpatient (CLI) | payer OTHER ==
[~2017-08-24] MED LIST: IOPAMIDOL (ISOVUE-300) 100 ML BTL ONE
== END ==
LOC: CIMAGING 11:12
PROVIDERS: ATTEND Urology
DX: R31.29 Other microscopic hematuria (principal)
CPT/HCPCS: 74178-PO; Q9967

== ENCOUNTER 2017-09-10 14:32 | Emergency (ER) | payer OTHER ==
--- NOTE | 2017-09-10 14:43 | EDPHY ---
H & P Stated Complaint: lower abdo pain since noon. Time Seen by Provider: 09/10/17 14:43 HPI/ROS: HPI CHIEF COMPLAINT: Abdominal pain, possible UTI HISTORY OF PRESENT ILLNESS: Patient is a 72-year-old female, she presents emergency room stating that she has some lower abdominal pain rather constant crampy. Additionally she reports urinary frequency with dysuria. States pain is located in her lower abdomen. She denies any vomiting but has had nausea. She took 4 mg p.o. Zofran prior to arrival is feeling somewhat better but still has some lower abdominal pain. Rates her pain 3/10 at this time. Past Medical History: UTI, partial SBO, pyelonephritis, CHF, TakoSubo Cardiomyopathy. Past Surgical History: Gallbladder removal, appendectomy, total hysterectomy with oophorectomy, bladder sling Social History: Denies daily use drugs alcohol tobacco. Family History: Noncontributory ROS REVIEW OF SYSTEMS: A comprehensive 10 point review of systems is otherwise negative aside from elements mentioned in the history of present illness. Exam Constitutional nontoxic appearing, triage nursing summary reviewed, vital signs reviewed, awake/alert. Eyes normal conjunctivae and sclera, EOMI, PERRLA. HENT normal inspection, atraumatic, moist mucus membranes, no epistaxis, neck supple/ no meningismus, no raccoon eyes. Respiratory clear to auscultation bilaterally, normal breath sounds, no respiratory distress, no wheezing. Cardiovascular rate normal, regular rhythm, no murmur, no edema, distal pulses normal. Gastrointestinal soft, non-tender, no rebound, no guarding, normal bowel sounds, no distension, no pulsatile mass. Genitourinary no CVA tenderness. Musculoskeletal no midline vertebral tenderness, full range of motion, no calf swelling, no tenderness of extremities, no meningismus, good pulses, neurovascularly intact. Skin pink, warm, & dry, no rash, skin atraumatic. Neurologic awake, alert and oriented x 3, AAOx3, moves all 4 extremities equally, motor intact, sensory intact, CN II-XII intact, normal cerebellar, normal vision, normal speech. Psychiatric normal mood/affect. Heme/Lymph/Immune no lymphadenopathy. Differential diagnosis includes but is not limited to and in no particular order : Bowel obstruction, appendicitis, gallbladder disease, diverticulitis, colitis , enteritis, perforated viscus, gastritis, GERD, esophagitis, urinary tract infection, pyelonephritis, kidney stones Medical Decision Making: Plan for this patient IV establishment IV fluid bolus IV Zofran for nausea, basic blood work, check lactic acid, check UA. Potential for CT imaging. Re-evaluation: CT scan abdomen pelvis with IV contrast called to me by Dr. Bui. Negative for acute inflammatory process. No evidence of diverticulitis or colitis. Blood work has been reviewed including urinalysis there is no evidence of UTI. There is no high white count. Lactic is normal. Patient is resting comfortably. 1700: I did reexamine the patient abdomen is soft nontender she is requesting discharge home. I discussed return precautions with her she understands return emergency room if develops worsening abdominal pain fever vomiting. Take-home pack of Zofran provided. Unclear etiology of abdominal pain could possibly be IBS she suffers from this. Return precautions discussed. Source: Patient - Personal History Current Tetanus Diphtheria and Acellular Pertussis (TDAP): Yes Tetanus Vaccine Date: 2013 - Medical/Surgical History Hx Asthma: No Hx Chronic Respiratory Disease: Yes Hx Diabetes: No Hx Cardiac Disease: Yes Hx Renal Disease: No Hx Cirrhosis: No Hx Alcoholism: Yes Hx HIV/AIDS: No Hx Splenectomy or Spleen Trauma: No Other PMH: claudine, appy, hysterectomy, tonsillectomy, breast biopsies, takotsubo cardiac syndrome x3, prolapsed bladder-bladder repaired, ibs, hypertension, copd - Social History Smoking Status: Former smoker Constitutional: Initial Vital Signs Temperature (C) 36.6 C 09/10/17 14:33 Heart Rate 99 09/10/17 14:33 Respiratory Rate 18 09/10/17 14:33 Blood Pressure 179/90 H 09/10/17 14:33 O2 Sat (%) 96 09/10/17 14:33 O2 Delivery Mode Room Air Allergies/Adverse Reactions: esomeprazole magnesium [From Nexium] Allergy (Severe, Verified 05/30/17 20:04) "shock" morphine [Morphine] Allergy (Severe, Verified 05/30/17 20:04) Anaphylaxis NSAIDS (Non-Steroidal Anti-Inflamma Allergy (Mild, Verified 05/30/17 20:04) Cant take because it upsets her stomach olanzapine [From Zyprexa] Allergy (Mild, Verified 05/30/17 20:04) cimetidine [Cimetidine] Allergy (Unknown, Verified 05/30/17 20:04) BRADYCARDIA metronidazole [From Flagyl] Allergy (Unknown, Verified 05/30/17 20:04) Other-Enter Comments Metronidazole HCl [From Flagyl] Allergy (Unknown, Verified 05/30/17 20:04) Other-Enter Comments omeprazole [From Prilosec] Allergy (Unknown, Verified 05/30/17 20:04) Other-Enter Comments omeprazole magnesium [From Prilosec] Allergy (Unknown, Verified 05/30/17 20:04) Other-Enter Comments dexamethasone Allergy (Verified 05/30/17 20:04) latex [Latex] Allergy (Verified 05/30/17 20:04) Rash loperamide [From Imodium A-D] Allergy (Verified 05/30/17 20:04) tobramycin Allergy (Verified 05/30/17 20:04) immodium Allergy (Uncoded 10/29/16 16:29) spandex Allergy (Uncoded 11/30/13 09:52) Home Medications: Medication Instructions Recorded Estrogens,Conjugated [Premarin 1 marlene VG AD 12/11/11 Vaginal (*)] Famotidine [Pepcid 10mg] 10 mg PO BID PRN 12/11/11 Lisinopril [Zestril 10 mg (*)] 10 mg PO BID 12/11/11 Propranolol HCl [Inderal 10mg (*)] 10 mg PO BID 08/18/12 Fluticasone Nasal [Flonase Nasal 2 sprays EACHNARE DAILY 05/25/14 [place]] Dicyclomine [Bentyl 10 MG (*)] 10 mg PO DAILY 04/05/16 Propylene Glycol/Peg 400 [SYSTANE 5 ml OP BID #0 11/09/16 0.3-0.4% EYE DROPS] Albuterol Sulfate [Proair Hfa] 1 inh PO PRN PRN 02/23/17 Acetaminophen [Tylenol ES 500 mg 500 mg PO Q6 PRN 05/30/17 (*)] Multivitamins [Multivitamin (*)] 1 each PO DAILY 05/30/17 Medical Decision Making - Diagnostics Imaging Results: Imaging Impressions Abdomen CT 09/10/17 15:54 Impression: Stable exam, with no CT explanation for the patient's symptoms. Findings were discussed with Mat Peters MD at 16:43, on 09/10/2017. - Data Points Laboratory Results: Laboratory Results 09/10/17 14:55 09/10/17 14:55 09/10/17 09/10/17 09/10/17 15:37 14:55 14:55 WBC RBC Hgb Hct MCV MCH MCHC RDW Plt Count MPV Neut % (Auto) Lymph % (Auto) [place] % (Auto) Eos % (Auto) Baso % (Auto) Nucleat RBC Rel Count Absolute Neuts (auto) Absolute Lymphs (auto) Absolute Monos (auto) Absolute Eos (auto) Absolute Basos (auto) Absolute Nucleated RBC Immature Gran % Immature Gran # PT 12.5 SEC SEC (12.0-15.0) INR 0.91 (0.83-1.16) APTT 32.7 SEC SEC (23.0-38.0) VBG Lactic Acid Sodium 145 mEq/L mEq/L (135-145) Potassium 4.2 mEq/L mEq/L (3.5-5.2) Chloride 107 mEq/L mEq/L (97-110) Carbon Dioxide 24 mEq/l mEq/l (22-31) Anion Gap 14 mEq/L mEq/L (8-16) BUN 10 mg/dL mg/dL (7-23) Creatinine 0.6 mg/dL mg/dL (0.6-1.0) Estimated GFR > 60 Glucose 109 mg/dL H mg/dL (70-100) Calcium 9.7 mg/dL mg/dL (8.5-10.4) Total Bilirubin 0.6 mg/dL mg/dL (0.1-1.4) Conjugated Bilirubin 0.3 mg/dL mg/dL (0.0-0.5) Unconjugated Bilirubin 0.3 mg/dL mg/dL (0.0-1.1) AST 19 IU/L IU/L (14-46) ALT 23 IU/L IU/L (9-52) Alkaline Phosphatase 71 IU/L IU/L (38-126) Total Protein 7.1 g/dL g/dL (6.3-8.2) Albumin 4.4 g/dL g/dL (3.5-5.0) Lipase 64 IU/L IU/L (23-300) Urine Color PALE YELLOW Urine Appearance CLEAR Urine pH 6.0 (5.0-7.5) Ur Specific [place] 1.005 (1.002-1.030) Urine Protein NEGATIVE (NEGATIVE) Urine Ketones NEGATIVE (NEGATIVE) Urine Blood NEGATIVE (NEGATIVE) Urine Nitrate NEGATIVE (NEGATIVE) Urine Bilirubin NEGATIVE (NEGATIVE) Urine Urobilinogen NEGATIVE EU EU (0.2-1.0) Ur Leukocyte Esterase NEGATIVE (NEGATIVE) Urine Glucose NEGATIVE (NEGATIVE) 09/10/17 09/10/17 14:55 14:55 WBC 7.92 10^3/uL 10^3/uL (3.80-9.50) RBC 4.75 10^6/uL 10^6/uL (4.18-5.33) Hgb 14.1 g/dL g/dL (12.6-16.3) Hct 41.5 % % (38.0-47.0) MCV 87.4 fL fL (81.5-99.8) MCH 29.7 pg pg (27.9-34.1) MCHC 34.0 g/dL g/dL (32.4-36.7) RDW 12.5 % % (11.5-15.2) Plt Count 334 10^3/uL 10^3/uL (150-400) MPV 8.8 fL fL (8.7-11.7) Neut % (Auto) 58.0 % % (39.3-74.2) Lymph % (Auto) 30.9 % % (15.0-45.0) [place] % (Auto) 6.6 % % (4.5-13.0) Eos % (Auto) 3.4 % % (0.6-7.6) Baso % (Auto) 0.8 % % (0.3-1.7) Nucleat RBC Rel Count 0.0 % % (0.0-0.2) Absolute Neuts (auto) 4.60 10^3/uL 10^3/uL (1.70-6.50) Absolute Lymphs (auto) 2.45 10^3/uL 10^3/uL (1.00-3.00) Absolute Monos (auto) 0.52 10^3/uL 10^3/uL (0.30-0.80) Absolute Eos (auto) 0.27 10^3/uL 10^3/uL (0.03-0.40) Absolute Basos (auto) 0.06 10^3/uL 10^3/uL (0.02-0.10) Absolute Nucleated RBC 0.00 10^3/uL 10^3/uL (0-0.01) Immature Gran % 0.3 % % (0.0-1.1) Immature Gran # 0.02 10^3/uL 10^3/uL (0.00-0.10) PT INR APTT VBG Lactic Acid 1.4 mmol/L mmol/L (0.7-2.1) Sodium Potassium Chloride Carbon Dioxide Anion Gap BUN Creatinine Estimated GFR Glucose Calcium Total Bilirubin Conjugated Bilirubin Unconjugated Bilirubin AST ALT Alkaline Phosphatase Total Protein Albumin Lipase Urine Color Urine Appearance Urine pH Ur Specific [place] Urine Protein Urine Ketones Urine Blood Urine Nitrate Urine Bilirubin Urine Urobilinogen Ur Leukocyte Esterase Urine Glucose Medications Given: Discontinued Medications Sodium Chloride (Ns) 1,000 mls @ 0 mls/hr IV EDNOW ONE; Wide Open PRN Reason: Protocol Stop: 09/10/17 14:49 Last Admin: 09/10/17 15:05 Dose: 1,000 mls Ondansetron HCl (Zofran) 4 mg IVP EDNOW ONE Stop: 09/10/17 14:49 Last Admin: 09/10/17 15:06 Dose: 4 mg Departure - Departure Disposition: Home, Routine, Self-Care Clinical Impression: Abdominal pain Qualifiers: Abdominal location: lower abdomen, unspecified Qualified Code(s): R10.30 - Lower abdominal pain, unspecified Condition: Good Instructions: Acute Abdominal Pain (ED) Additional Instructions: 1. Stay well-hydrated drink lots of fluids. 2. Return emergency room if there is worsening abdominal pain fever or vomiting. Referrals: Tayo Lai [Primary Care Provider] - As per Instructions
[2017-09-10] MEDS ORDERED: ONDANSETRON 4 MG/2 ML VIAL IVP ONE (14:48)
[2017-09-10] MEDS ORDERED: NS 1,000 ML IV ONE (14:48)
[2017-09-10 15:10] LABS: PLATELET COUNT 334 10^3/uL (150-400)
[2017-09-10 15:19] LABS: INR 0.91 (0.83-1.16); PROTIME(PATIENT) 12.5 SEC (12.0-15.0)
[2017-09-10] MEDS ORDERED: IOPAMIDOL (ISOVUE-300) 100 ML BTL ONE (16:05)
[2017-09-10 17:02] VITALS: BP 132/86
[2017-09-10] MEDS ORDERED: ONDANSETRON 4MG PREPACK#2 BTL TAKEHOME ONE ×2 (17:05→17:08)
== END 2017-09-10 17:15 | disposition home or self-care (01) ==
DX: R10.30 Lower abdominal pain, unspecified (principal); E86.9 Volume depletion, unspecified; J44.9 Chronic obstructive pulmonary disease, unspecified; I11.0 Hypertensive heart disease with heart failure; I50.9 Heart failure, unspecified; Z87.891 Personal history of nicotine dependence; Z90.710 Acquired absence of both cervix and uterus; Z90.89 Acquired absence of other organs; Z91.040 Latex allergy status
CPT/HCPCS: 96374; J2405; Q9967

== ENCOUNTER 2017-09-23 15:41 | Emergency (ER) | payer OTHER ==
--- NOTE | 2017-09-23 16:42 | EDPHY ---
H & P Time Seen by Provider: 09/23/17 16:27 HPI/ROS: CHIEF COMPLAINT: Abdominal pain HISTORY OF PRESENT ILLNESS: Patient is a 72-year-old female who presents emergency department with lower abdominal pain since awaking this morning. Patient states she was here on 09/10/2017 with similar pain. She describes diffuse lower abdominal pain. It radiates to her back bilaterally. She has had no dysuria frequency. No fevers or chills. She has had mild nausea but no vomiting. The patient does report nonbloody diarrhea. She feels mildly bloated. She took Zofran and Bentyl without relief. She requests IV Zofran. REVIEW OF SYSTEMS: My complete review of systems is negative except as mentioned in the HPI. Past Medical/Surgical History: Includes UTI, partial SBO, pyelonephritis, CHF, cardiomyopathy, IBS, COPD Past surgical history: Includes cholecystectomy, appendectomy, hysterectomy with oophorectomy, bladder sling Social history: The patient denies drugs or alcohol. Smoking Status: Former smoker Physical Exam: Vitals noted GENERAL: No acute distress, alert. HEENT: Eyes normal to inspection, normal pharynx, no signs of dehydration. NECK: No thyromegaly, no lymphadenopathy, supple. RESPIRATORY: Clear to auscultation bilaterally, no rales, rhonchi or wheezing. CVS: Regular rate and rhythm, no rubs, murmurs, or gallops. ABDOMEN: Soft, suprapubic tenderness to palpation with no rebound or guarding, nondistended, no organomegaly. BACK: Normal to inspection, no CVA tenderness. SKIN: Normal color, no rash, warm, dry. No pallor. EXTREMITIES: No pedal edema, no calf tenderness, no Homans sign or cords, no joint swelling. NEURO/PSYCH: Alert and oriented, normal mood and affect, normal motor sensory exam. Constitutional: Initial Vital Signs Temperature (C) 36.6 C 09/23/17 15:46 Heart Rate 110 H 09/23/17 15:46 Respiratory Rate 18 09/23/17 15:46 Blood Pressure 177/126 H 09/23/17 15:46 O2 Sat (%) 93 09/23/17 15:46 O2 Delivery Mode Room Air Allergies/Adverse Reactions: esomeprazole magnesium [From Nexium] Allergy (Severe, Verified 05/30/17 20:04) "shock" morphine [Morphine] Allergy (Severe, Verified 09/23/17 15:49) Anaphylaxis NSAIDS (Non-Steroidal Anti-Inflamma Allergy (Mild, Verified 09/23/17 15:49) Cant take because it upsets her stomach olanzapine [From Zyprexa] Allergy (Mild, Verified 09/23/17 15:49) cimetidine [Cimetidine] Allergy (Unknown, Verified 09/23/17 15:49) BRADYCARDIA metronidazole [From Flagyl] Allergy (Unknown, Verified 09/23/17 15:49) Other-Enter Comments Metronidazole HCl [From Flagyl] Allergy (Unknown, Verified 09/23/17 15:49) Other-Enter Comments omeprazole [From Prilosec] Allergy (Unknown, Verified 09/23/17 15:49) Other-Enter Comments omeprazole magnesium [From Prilosec] Allergy (Unknown, Verified 09/23/17 15:49) Other-Enter Comments dexamethasone Allergy (Verified 09/23/17 15:49) latex [Latex] Allergy (Verified 09/23/17 15:49) Rash loperamide [From Imodium A-D] Allergy (Verified 09/23/17 15:49) tobramycin Allergy (Verified 09/23/17 15:49) immodium Allergy (Uncoded 10/29/16 16:29) spandex Allergy (Uncoded 11/30/13 09:52) Home Medications: Medication Instructions Recorded Estrogens,Conjugated [Premarin 1 marlene VG AD 12/11/11 Vaginal (*)] Famotidine [Pepcid 10mg] 10 mg PO BID PRN 12/11/11 Lisinopril [Zestril 10 mg (*)] 10 mg PO BID 12/11/11 Propranolol HCl [Inderal 10mg (*)] 10 mg PO BID 08/18/12 Fluticasone Nasal [Flonase Nasal 2 sprays EACHNARE DAILY 05/25/14 [place]] Dicyclomine [Bentyl 10 MG (*)] 10 mg PO DAILY 04/05/16 Propylene Glycol/Peg 400 [SYSTANE 5 ml OP BID #0 11/09/16 0.3-0.4% EYE DROPS] Albuterol Sulfate [Proair Hfa] 1 inh PO PRN PRN 02/23/17 Acetaminophen [Tylenol ES 500 mg 500 mg PO Q6 PRN 05/30/17 (*)] Multivitamins [Multivitamin (*)] 1 each PO DAILY 05/30/17 Ondansetron Odt [Zofran Odt 4 mg 4 mg PO Q4PRN PRN #7 tab 09/23/17 (*)] Medical Decision Making ED Course/Re-evaluation: In the emergency department discussed possible etiologies with the patient. I answered all her questions. I reviewed her previous medical record. An IV was placed. Laboratory studies were obtained. The patient requested Zofran and it was given IV. On recheck the patient was feeling much better. Patient's CBC and chemistry panel is unremarkable. I am awaiting UA. I rechecked the patient. She states she feels better. She had no abdominal pain. Abdomen is soft, nontender nondistended. UA: 5-10 red cells. No other abnormality. I discussed the results with the patient. I answered all her questions. Prior to discharge patient was doing well. She had no abdominal pain. Abdominal exam is benign. Differential Diagnosis: My differential includes but is not limited to is diverticulitis, colitis, enteritis, small-bowel obstruction, perforation, appendicitis, urinary tract infection, pyelonephritis, kidney stone, mass, malignancy - Data Points Laboratory Results: Laboratory Results 09/23/17 16:50 09/23/17 16:50 09/23/17 09/23/17 09/23/17 17:48 16:50 16:50 WBC 9.62 10^3/uL H 10^3/uL (3.80-9.50) RBC 4.88 10^6/uL 10^6/uL (4.18-5.33) Hgb 14.5 g/dL g/dL (12.6-16.3) Hct 42.4 % % (38.0-47.0) MCV 86.9 fL fL (81.5-99.8) MCH 29.7 pg pg (27.9-34.1) MCHC 34.2 g/dL g/dL (32.4-36.7) RDW 12.8 % % (11.5-15.2) Plt Count 366 10^3/uL 10^3/uL (150-400) MPV 8.6 fL L fL (8.7-11.7) Neut % (Auto) 66.0 % % (39.3-74.2) Lymph % (Auto) 23.7 % % (15.0-45.0) [place] % (Auto) 5.6 % % (4.5-13.0) Eos % (Auto) 3.7 % % (0.6-7.6) Baso % (Auto) 0.7 % % (0.3-1.7) Nucleat RBC Rel Count 0.0 % % (0.0-0.2) Absolute Neuts (auto) 6.34 10^3/uL 10^3/uL (1.70-6.50) Absolute Lymphs (auto) 2.28 10^3/uL 10^3/uL (1.00-3.00) Absolute Monos (auto) 0.54 10^3/uL 10^3/uL (0.30-0.80) Absolute Eos (auto) 0.36 10^3/uL 10^3/uL (0.03-0.40) Absolute Basos (auto) 0.07 10^3/uL 10^3/uL (0.02-0.10) Absolute Nucleated RBC 0.00 10^3/uL 10^3/uL (0-0.01) Immature Gran % 0.3 % % (0.0-1.1) Immature Gran # 0.03 10^3/uL 10^3/uL (0.00-0.10) Sodium 143 mEq/L mEq/L (135-145) Potassium 4.5 mEq/L mEq/L (3.3-5.0) Chloride 107 mEq/L mEq/L (97-110) Carbon Dioxide 22 mEq/l mEq/l (22-31) Anion Gap 14 mEq/L mEq/L (8-16) BUN 8 mg/dL mg/dL (7-23) Creatinine 0.6 mg/dL mg/dL (0.6-1.0) Estimated GFR > 60 Glucose 104 mg/dL H mg/dL (70-100) Calcium 9.5 mg/dL mg/dL (8.5-10.4) Urine Color COLORLESS Urine Appearance CLEAR Urine pH 7.0 (5.0-7.5) Ur Specific [place] 1.002 (1.002-1.030) Urine Protein NEGATIVE (NEGATIVE) Urine Ketones NEGATIVE (NEGATIVE) Urine Blood NEGATIVE (NEGATIVE) Urine Nitrate NEGATIVE (NEGATIVE) Urine Bilirubin NEGATIVE (NEGATIVE) Urine Urobilinogen NEGATIVE EU EU (0.2-1.0) Ur Leukocyte Esterase NEGATIVE (NEGATIVE) Urine RBC 5-10 /hpf H /hpf (0-3) Urine WBC 1-3 /hpf /hpf (0-3) Ur Epithelial Cells TRACE /lpf /lpf (NONE-1+) Urine Mucus TRACE /lpf /lpf (NONE-1+) Urine Glucose NEGATIVE (NEGATIVE) Medications Given: Discontinued Medications Ondansetron HCl (Zofran) 4 mg IVP EDNOW ONE Stop: 09/23/17 16:45 Last Admin: 09/23/17 17:01 Dose: 4 mg Departure - Departure Disposition: Home, Routine, Self-Care Clinical Impression: Abdominal pain Qualifiers: Abdominal location: lower abdomen, unspecified Qualified Code(s): R10.30 - Lower abdominal pain, unspecified Condition: Good Instructions: Acute Abdominal Pain (ED) Additional Instructions: Return with increasing pain, fever, vomiting, pain with urination or any other concerns Referrals: Tayo Lai [Primary Care Provider] - 2-3 days without fail Yo Berger MD [Medical Doctor] - 5-7 days, call for appt. Prescriptions: Ondansetron Odt [Zofran Odt 4 mg (*)] 4 mg PO Q4PRN PRN #7 tab PRN Reason: For Nausea & Vomiting
[2017-09-23] MEDS ORDERED: ONDANSETRON 4 MG/2 ML VIAL IVP ONE (16:44)
[2017-09-23 16:57] LABS: PLATELET COUNT 366 10^3/uL (150-400)
[2017-09-23] MEDS ORDERED: ONDANSETRON DISINTEGRATING 4 MG TAB PO ONE (19:16)
[2017-09-23] MEDS ORDERED: ONDANSETRON 4MG PREPACK#2 BTL TAKEHOME ONE ×2 (19:17)
[2017-09-23 19:23] VITALS: BP 150/76
== END 2017-09-23 19:24 | disposition home or self-care (01) ==
DX: R10.30 Lower abdominal pain, unspecified (principal); J44.9 Chronic obstructive pulmonary disease, unspecified; I50.9 Heart failure, unspecified; Z87.891 Personal history of nicotine dependence; Z90.49 Acquired absence of other specified parts of digestive tract; Z90.710 Acquired absence of both cervix and uterus; Z90.89 Acquired absence of other organs; Z91.040 Latex allergy status
CPT/HCPCS: 96374; J2405

== ENCOUNTER 2017-10-18 23:11 | Emergency (ER) | payer OTHER ==
--- NOTE | 2017-10-18 23:32 | EDPHY ---
H & P Stated Complaint: PELVIC PAIN/"I THINK IT HAS TO DO W/MY BLADDER LIFT 3 YRS AGO Source: Patient Exam Limitations: No limitations - Personal History Current Tetanus Diphtheria and Acellular Pertussis (TDAP): Yes Tetanus Vaccine Date: 2013 - Medical/Surgical History Hx Asthma: No Hx Chronic Respiratory Disease: Yes Hx Diabetes: No Hx Cardiac Disease: Yes Hx Renal Disease: No Hx Cirrhosis: No Hx Alcoholism: Yes Hx HIV/AIDS: No Hx Splenectomy or Spleen Trauma: No Other PMH: claudine, appy, hysterectomy, tonsillectomy, breast biopsies, takotsubo cardiac syndrome x3, prolapsed bladder-bladder repaired, ibs, hypertension, copd , - Social History Smoking Status: Former smoker Time Seen by Provider: 10/18/17 23:31 HPI/ROS: HPI: This is a 72-year-old female who presents with Chief Complaint: PELVIC PAIN/"I THINK IT HAS TO DO W/MY BLADDER LIFT 3 YRS AGO Location: Pelvic/urethra Quality: Pain Duration: 24 hr Signs and Symptoms: no fever, + nausea, no vomiting, no hematemesis, no blood in stool, no abdominal bloating, no diarrhea, no back pain, no urinary symptoms , no vaginal bleeding/discharge, no indigestion, no chest pain, no shortness of breath Timing: Acute on chronic Severity: Moderate Context: Patient has a history of cholecystectomy, appendectomy, prolapsed bladder with bladder sling by Dr. Multani presents with complaints of urethral spasm and pain accompanied by pelvic pain for the last 24 hr. She denies any burning with urination or urinary hesitancy. She has no blood in her urine. She was able to have a bowel movement yesterday. She reports feeling nauseous but no vomiting, no diarrhea. She called Dr. Multani office today and has an appointment scheduled for tomorrow. She is concerned that her bladder has prolapse or there is something wrong with her mesh. She currently complains of only mild, intermittent discomfort that is nonradiating in nature. She is requesting 1 mg of Ativan as she feels anxious. Last pelvic exam was 6 months ago at [facility] and was normal per patient. Modifying Factors: None Comment: ROS: see HPI Constitutional: No fever, no chills, no weight loss Eyes: No blurred vision Respiratory: No shortness of breath, no cough Cardiovascular: No chest pain, no palpitations Gastrointestinal: No nausea, no vomiting, no diarrhea, no hematemesis, no blood in stool Genitourinary: No dysuria, no blood in urine Extremities: No myalgias, no edema Neurologic: No weakness, no numbness Skin: No rashes, no petechiae Hematologic: No bruising, no bleeding MEDICAL/SURGICAL/SOCIAL HISTORY: Medical/Surgical history: claudine, appy, hysterectomy, tonsillectomy, breast biopsies, takotsubo cardiac syndrome x3, prolapsed bladder-bladder repaired, ibs , hypertension, copd Social history: Retired. Family history noncontributory. CONSTITUTIONAL: Slightly anxious nontoxic-appearing elderly white female, awake and alert, no obvious distress HEENT: Atraumatic and normocephalic, PERRL, EOMI. Nares patent; no rhinorrhea; no nasal mucosal edema. Tympanic membranes clear. Oropharynx clear, no exudate and moist pink mucosa. Airway patent. No lymphadenopathy. No meningismus. Cardiovascular: Normal S1/S2, mild tachycardia, regular rhythm, without murmur rub or gallop. PULMONARY/CHEST: Symmetrical and nontender. Clear to auscultation bilaterally. Good air movement. No accessory muscle usage. ABDOMEN: Soft, nondistended, mild lower abdominal tenderness, no rebound, no guarding, no peritoneal signs, no masses or organomegaly. No CVAT. PELVIC: normal external genitalia, normal cervix, cervical os was closed, no cervical motion tenderness, no adnexal mass, no discharge, no bleeding, bladder prolapse noted The exam was performed with a telescope repairer. EXTREMITIES: 2/2 pulses, strength 5/5, no deformities, no clubbing, no cyanosis or edema. NEUROLOGICAL: no focal neuro deficits. GCS 15. SKIN: Warm and dry, no erythema. no rash. Good capillary refill. (Yuki,Terra) Constitutional: Initial Vital Signs Temperature (C) 36.7 C 10/18/17 23:20 Heart Rate 106 H 10/18/17 23:20 Respiratory Rate 18 10/18/17 23:20 Blood Pressure 181/111 H 10/18/17 23:20 O2 Sat (%) 106 H 10/18/17 23:20 O2 Delivery Mode Room Air O2 (L/minute) 2 Allergies/Adverse Reactions: esomeprazole magnesium [From Nexium] Allergy (Severe, Verified 05/30/17 20:04) "shock" morphine [Morphine] Allergy (Severe, Verified 09/23/17 15:49) Anaphylaxis NSAIDS (Non-Steroidal Anti-Inflamma Allergy (Mild, Verified 09/23/17 15:49) Cant take because it upsets her stomach olanzapine [From Zyprexa] Allergy (Mild, Verified 09/23/17 15:49) cimetidine [Cimetidine] Allergy (Unknown, Verified 09/23/17 15:49) BRADYCARDIA metronidazole [From Flagyl] Allergy (Unknown, Verified 09/23/17 15:49) Other-Enter Comments Metronidazole HCl [From Flagyl] Allergy (Unknown, Verified 09/23/17 15:49) Other-Enter Comments omeprazole [From Prilosec] Allergy (Unknown, Verified 09/23/17 15:49) Other-Enter Comments omeprazole magnesium [From Prilosec] Allergy (Unknown, Verified 09/23/17 15:49) Other-Enter Comments dexamethasone Allergy (Verified 09/23/17 15:49) latex [Latex] Allergy (Verified 09/23/17 15:49) Rash loperamide [From Imodium A-D] Allergy (Verified 09/23/17 15:49) tobramycin Allergy (Verified 09/23/17 15:49) immodium Allergy (Uncoded 10/29/16 16:29) spandex Allergy (Uncoded 11/30/13 09:52) Home Medications: Medication Instructions Recorded Estrogens,Conjugated [Premarin 1 marlene VG AD 12/11/11 Vaginal (*)] Famotidine [Pepcid 10mg] 10 mg PO BID PRN 12/11/11 Lisinopril [Zestril 10 mg (*)] 10 mg PO BID 12/11/11 Propranolol HCl [Inderal 10mg (*)] 10 mg PO BID 08/18/12 Fluticasone Nasal [Flonase Nasal 2 sprays EACHNARE DAILY 05/25/14 [place]] Dicyclomine [Bentyl 10 MG (*)] 10 mg PO DAILY 04/05/16 Propylene Glycol/Peg 400 [SYSTANE 5 ml OP BID #0 11/09/16 0.3-0.4% EYE DROPS] Albuterol Sulfate [Proair Hfa] 1 inh PO PRN PRN 02/23/17 Acetaminophen [Tylenol ES 500 mg 500 mg PO Q6 PRN 05/30/17 (*)] Multivitamins [Multivitamin (*)] 1 each PO DAILY 05/30/17 Ondansetron Odt [Zofran Odt 4 mg 4 mg PO Q4PRN PRN #7 tab 09/23/17 (*)] Medical Decision Making ED Course/Re-evaluation: Labs, urinalysis, IV medications, CT abdomen and pelvis scan ordered Vital signs stable upon arrival other than mild tachycardia. IV Ativan 1 mg given per patient request for anxiety. Belladonna suppository given. Urinalysis reviewed and unremarkable no signs of infection, no hematuria. Patient ambulating back and forth to the bathroom urinating without any difficulty. Question patient regarding morphine allergy causes anaphylaxis and she reports that she is able to take Dilaudid, fentanyl, Percocet without any difficulties she believes that years ago when she received IV morphine before procedure that they gave her too much which cause respiratory depression and therefore anaphylaxis per her account. Spoke with pharmacy and allergy list updated. Belladonna suppository given. 0112: End of shift. Signed over to Dr. Peters pending CT abdomen and pelvis scan results suspect patient will be discharged home with follow-up tomorrow with Dr. Multani OBNAN to discuss cystocele. This patient was seen under the supervision of my secondary supervising physician. I evaluated care for this patient independently. Discussed this patient with Dr. Peters who did not see the patient. (Carli Mirza) 0128AM: CT scan abdomen pelvis with IV contrast called to me shows no evidence of acute inflammatory process called to me by Dr. Bui. (Mat Peters) Differential Diagnosis: Abdominal pain in a female including but not limited to ovarian cyst, pelvic inflammatory disease, ovarian torsion, urinary tract infection, and appendicitis. (Carli Mirza) - Data Points Laboratory Results: Laboratory Results 10/18/17 23:57 10/18/17 23:57 10/18/17 10/18/17 10/18/17 23:57 23:57 23:38 WBC 18.65 10^3/uL H 10^3/uL (3.80-9.50) RBC 4.80 10^6/uL 10^6/uL (4.18-5.33) Hgb 14.5 g/dL g/dL (12.6-16.3) Hct 42.2 % % (38.0-47.0) MCV 87.9 fL fL (81.5-99.8) MCH 30.2 pg pg (27.9-34.1) MCHC 34.4 g/dL g/dL (32.4-36.7) RDW 12.9 % % (11.5-15.2) Plt Count 346 10^3/uL 10^3/uL (150-400) MPV 9.0 fL fL (8.7-11.7) Neut % (Auto) 72.9 % % (39.3-74.2) Lymph % (Auto) 16.7 % % (15.0-45.0) [place] % (Auto) 6.1 % % (4.5-13.0) Eos % (Auto) 3.5 % % (0.6-7.6) Baso % (Auto) 0.4 % % (0.3-1.7) Nucleat RBC Rel Count 0.0 % % (0.0-0.2) Absolute Neuts (auto) 13.60 10^3/uL H 10^3/uL (1.70-6.50) Absolute Lymphs (auto) 3.11 10^3/uL H 10^3/uL (1.00-3.00) Absolute Monos (auto) 1.13 10^3/uL H 10^3/uL (0.30-0.80) Absolute Eos (auto) 0.66 10^3/uL H 10^3/uL (0.03-0.40) Absolute Basos (auto) 0.07 10^3/uL 10^3/uL (0.02-0.10) Absolute Nucleated RBC 0.00 10^3/uL 10^3/uL (0-0.01) Immature Gran % 0.4 % % (0.0-1.1) Immature Gran # 0.08 10^3/uL 10^3/uL (0.00-0.10) Sodium 137 mEq/L mEq/L (135-145) Potassium 4.2 mEq/L mEq/L (3.3-5.0) Chloride 102 mEq/L mEq/L (97-110) Carbon Dioxide 20 mEq/l L mEq/l (22-31) Anion Gap 15 mEq/L mEq/L (8-16) BUN 12 mg/dL mg/dL (7-23) Creatinine 0.7 mg/dL mg/dL (0.6-1.0) Estimated GFR > 60 Glucose 111 mg/dL H mg/dL (70-100) Calcium 9.3 mg/dL mg/dL (8.5-10.4) Total Bilirubin 0.8 mg/dL mg/dL (0.1-1.4) Conjugated Bilirubin 0.5 mg/dL mg/dL (0.0-0.5) Unconjugated Bilirubin 0.3 mg/dL mg/dL (0.0-1.1) AST 23 IU/L IU/L (14-46) ALT 32 IU/L IU/L (9-52) Alkaline Phosphatase 84 IU/L IU/L (38-126) Total Protein 7.3 g/dL g/dL (6.3-8.2) Albumin 4.5 g/dL g/dL (3.5-5.0) Lipase 110 IU/L IU/L (23-300) Urine Color YELLOW Urine Appearance CLEAR Urine pH 5.0 (5.0-7.5) Ur Specific [place] 1.008 (1.002-1.030) Urine Protein NEGATIVE (NEGATIVE) Urine Ketones NEGATIVE (NEGATIVE) Urine Blood NEGATIVE (NEGATIVE) Urine Nitrate NEGATIVE (NEGATIVE) Urine Bilirubin NEGATIVE (NEGATIVE) Urine Urobilinogen NEGATIVE EU EU (0.2-1.0) Ur Leukocyte Esterase NEGATIVE (NEGATIVE) Urine Glucose NEGATIVE (NEGATIVE) Medications Given: Discontinued Medications Lorazepam (Ativan Injection) 1 mg IVP EDNOW ONE Stop: 10/18/17 23:39 Last Admin: 10/18/17 23:54 Dose: 1 mg Departure - Departure Disposition: Home, Routine, Self-Care Clinical Impression: Bladder spasm, Female cystocele Condition: Good Instructions: Cystocele (ED) Additional Instructions: Please keep her follow-up appointment with Dr. Multani tomorrow at 2:00 p.m. Referrals: Tayo Lai [Primary Care Provider] - As per Instructions Luis Multani MD [Medical Doctor] - 10/19/17 2:00 pm
[2017-10-18] MEDS ORDERED: LORazepam 2 MG/ML INJ IVP ONE (23:38)
[2017-10-19] MEDS ORDERED: IOPAMIDOL (ISOVUE-300) 100 ML BTL ONE (00:24)
[2017-10-19 00:30] LABS: PLATELET COUNT 346 10^3/uL (150-400)
[2017-10-19] MEDS ORDERED: OPIUM/BELLADONNA ALKALO SUPP PR ONE (00:42)
[2017-10-19 01:06] VITALS: BP 119/78
== END 2017-10-19 01:57 | disposition home or self-care (01) ==
DX: N32.89 Other specified disorders of bladder (principal); N81.10 Cystocele, unspecified; I10 Essential (primary) hypertension; J44.9 Chronic obstructive pulmonary disease, unspecified; Z87.891 Personal history of nicotine dependence; Z90.49 Acquired absence of other specified parts of digestive tract; Z90.710 Acquired absence of both cervix and uterus; Z91.040 Latex allergy status
CPT/HCPCS: 96374; J2060; Q9967

== ENCOUNTER → 2018-02-20 | Outpatient (CLI) | payer OTHER | LOC: FIMAGING 12:52 | DX: I65.21 Occlusion and stenosis of right carotid artery (principal) ==

== ENCOUNTER 2018-06-01 06:10 | Emergency (ER) | payer OTHER ==
[2018-06-01] MEDS ORDERED: HYDROmorphONE/DILAUDID 2 MG TAB PO ONE (06:39)
[2018-06-01] MEDS ORDERED: HYDROCOD/APAP 5/325 PREPACK#6 BTL TAKEHOME ONE (06:41)
--- NOTE | 2018-06-01 06:56 | EDPHY ---
H & P Stated Complaint: L knee pain, dx with cyst to knee 05/31 Time Seen by Provider: 06/01/18 06:15 HPI/ROS: HPI The patient presents brought in by ambulance for left-sided knee pain. Yesterday she was evaluated by Dr. Caro of Orthopedics, had an ultrasound performed of her left knee and was diagnosed with a Hilton cyst. She has plans for follow-up in 3 days. The pain was severe tonight, not improved with Tylenol , making it difficult for her to walk so she called 911. The pain is in the posterior aspect of her knee and worse with standing. She denies any fevers or chills. . REVIEW OF SYSTEMS 10 systems were reviewed and negative with the exception of the elements mentioned in the history of present illness. PMHx: Hypertension, COPD Soc Hx: Housed PHYSICAL General Appearance: Alert, no distress Eyes: Pupils equal and round no pallor or injection ENT, Mouth: Mucous membranes moist Respiratory: Breathing comfortably Neurological: A&O, moves all extremities Skin: Warm and dry, no rashes Musculoskeletal: Left popliteal fossa is tender to palpation, knee is held in extension with pain with flexion, there is no overlying erythema, warmth Extremities: symmetrical, full range of motion Psychiatric: Patient is oriented X 3, there is no agitation Source: Patient Exam Limitations: No limitations - Personal History Current Tetanus/Diphtheria Vaccine: Yes Tetanus Vaccine Date: 2013 - Medical/Surgical History Hx Asthma: No Hx Chronic Respiratory Disease: Yes Hx Diabetes: No Hx Cardiac Disease: Yes Hx Renal Disease: No Hx Cirrhosis: No Hx Alcoholism: Yes Hx HIV/AIDS: No Hx Splenectomy or Spleen Trauma: No Other PMH: claudine, appy, hysterectomy, tonsillectomy, breast biopsies, takotsubo cardiac syndrome x3, prolapsed bladder-bladder repaired, ibs, hypertension, copd , - Social History Smoking Status: Former smoker Constitutional: Initial Vital Signs Temperature (C) 36.7 C 06/01/18 06:15 Heart Rate 104 H 06/01/18 06:15 Respiratory Rate 18 06/01/18 06:15 Blood Pressure 158/80 H 06/01/18 06:15 O2 Sat (%) 92 06/01/18 06:15 O2 Delivery Mode Room Air Allergies/Adverse Reactions: esomeprazole magnesium [From Nexium] Allergy (Severe, Verified 06/01/18 06:31) "shock" morphine [Morphine] Allergy (Severe, Verified 06/01/18 06:31) Anaphylaxis NSAIDS (Non-Steroidal Anti-Inflamma Allergy (Mild, Verified 06/01/18 06:31) Cant take because it upsets her stomach olanzapine [From Zyprexa] Allergy (Mild, Verified 06/01/18 06:31) cimetidine [Cimetidine] Allergy (Unknown, Verified 06/01/18 06:31) BRADYCARDIA metronidazole [From Flagyl] Allergy (Unknown, Verified 06/01/18 06:31) Other-Enter Comments Metronidazole HCl [From Flagyl] Allergy (Unknown, Verified 06/01/18 06:31) Other-Enter Comments omeprazole [From Prilosec] Allergy (Unknown, Verified 06/01/18 06:31) Other-Enter Comments omeprazole magnesium [From Prilosec] Allergy (Unknown, Verified 06/01/18 06:31) Other-Enter Comments dexamethasone Allergy (Verified 06/01/18 06:31) latex [Latex] Allergy (Verified 06/01/18 06:31) Rash loperamide [From Imodium A-D] Allergy (Verified 06/01/18 06:31) tobramycin Allergy (Verified 06/01/18 06:31) immodium Allergy (Uncoded 12/05/17 12:46) spandex Allergy (Uncoded 12/05/17 12:46) Home Medications: Medication Instructions Recorded Lisinopril [Zestril 10 mg (*)] 10 mg PO BID 12/11/11 Propranolol HCl [Inderal 10mg (*)] 10 mg PO BID 08/18/12 Multivitamins [Multivitamin (*)] 1 each PO DAILY 05/30/17 Lomotil Tab (*) 12/05/17 Coreg 06/01/18 Hydrocodone/APAP 5/325 [[place] 1 - 2 tab PO Q6H PRN #15 tab 06/01/18 5/325 (*)] Phenergan 25mg (*) 06/01/18 Premarin 06/01/18 Medical Decision Making Differential Diagnosis: This is a 72-year-old female with 5 days of atraumatic left-sided popliteal fossa pain. Evaluated by Orthopedics yesterday with ultrasound performed demonstrating what appears to be a chronic looking Hilton cyst. The patient presents with ongoing pain tonight. Here, her exam is relatively unremarkable. We have placed her in a knee immobilizer for stabilization. I will give her a prescription for [place] as given that she cannot take NSAIDs because of GI issues. She has a follow-up appointment on Sunday with Dr. Caro. She has a walker at home which she has been using. I have encouraged her to continue using Tylenol for pain. - Data Points Medications Given: Discontinued Medications Hydrocodone Bitart/Acetaminophen (Franklin 5/325mg Prepack#6) 1 btl TAKEHOME EDNOW ONE Stop: 06/01/18 06:42 Last Admin: 06/01/18 07:01 Dose: 1 btl Hydromorphone HCl (Dilaudid) 2 mg PO EDNOW ONE Stop: 06/01/18 06:40 Last Admin: 06/01/18 07:01 Dose: 2 mg Departure - Departure Disposition: Home, Routine, Self-Care Clinical Impression: Synovial cyst of popliteal space [[place]], left knee Condition: Good Instructions: Hydrocodone/Acetaminophen (By mouth), [place] Cyst (ED) Additional Instructions: Please use the knee immobilizer to help with your pain. You should also use an ice pack for 20 min at a time multiple times a day. Continue using Tylenol 1000 mg every 6 hr. If the pain is severe you can use Franklin instead of this. Referrals: Ra Caro MD [Medical Doctor] - As per Instructions Prescriptions: Hydrocodone/APAP 5/325 [Franklin 5/325 (*)] 1 - 2 tab PO Q6H PRN #15 tab PRN Reason: Pain, Breakthrough
[2018-06-01 07:06] VITALS: BP 147/82
== END 2018-06-01 07:05 | disposition home or self-care (01) ==
LOC: EDUNIT#
DX: M71.22 Synovial cyst of popliteal space [Baker], left knee (principal)
CPT/HCPCS: L1830

== ENCOUNTER 2018-09-18 22:32 | Emergency (ER) | payer OTHER ==
[2018-09-18] MEDS ORDERED: valACYclovir 500 MG TAB PO ONE (23:25)
--- NOTE | 2018-09-18 23:25 | EDPHY ---
H & P Stated Complaint: possible mouth infection , left side Time Seen by Provider: 09/18/18 22:53 HPI/ROS: Chief Complaint: Mouth sores HPI: 73-year-old woman had cavities filled on the left side of her upper mouth 2 days ago. Following day she noticed some bumps in her mouth which has been worsening. Patient had pain in her upper lip and lower lip with some redness and discomfort. She was seen by her dentist the following day who thought she may have been biting her lip. She saw her primary care physician today who did a viral swab which was negative but she did not have any excoriations or weeping lesions. Pain is been getting worse. No fevers or chills. No difficulty swallowing. ROS: 10 systems were reviewed and were negative except those elements noted in the HPI. Social History: No smoking, no alcohol, no recreational drug use Family History: non-contributory Physical Exam: Gen: Awake, Alert, No Distress HEENT: Nose: no rhinorrhea Eyes: PERRLA, EOMI Mouth: Moist mucosa patient has erythema at with next vesicle lesion on her mucosal upper lip. Patient also has a small vesicle on her lower lip. These are not confluent. There is no mass or fluctuance. Skin: Per mouth Neuro: CN II-XII intact, Sensation grossly intact, Strength 5/5 in bilateral upper and lower extremities - Personal History Current Tetanus Diphtheria and Acellular Pertussis (TDAP): Yes Tetanus Vaccine Date: 2013 - Medical/Surgical History Hx Asthma: No Hx Chronic Respiratory Disease: Yes Hx Diabetes: No Hx Cardiac Disease: Yes Hx Renal Disease: No Hx Cirrhosis: No Hx Alcoholism: Yes Hx HIV/AIDS: No Hx Splenectomy or Spleen Trauma: No Other PMH: claudine, appy, hysterectomy, tonsillectomy, breast biopsies, takotsubo cardiac syndrome x3, prolapsed bladder-bladder repaired, ibs, hypertension, copd , - Social History Smoking Status: Former smoker Constitutional: Initial Vital Signs Temperature (C) 36.8 C 09/18/18 22:33 Heart Rate 97 09/18/18 22:33 Respiratory Rate 16 09/18/18 22:33 Blood Pressure 177/85 H 09/18/18 22:33 O2 Sat (%) 91 L 09/18/18 22:33 Allergies/Adverse Reactions: esomeprazole magnesium [From Nexium] Allergy (Severe, Verified 06/01/18 06:31) "shock" morphine [Morphine] Allergy (Severe, Verified 06/01/18 06:31) Anaphylaxis NSAIDS (Non-Steroidal Anti-Inflamma Allergy (Mild, Verified 06/01/18 06:31) Cant take because it upsets her stomach olanzapine [From Zyprexa] Allergy (Mild, Verified 06/01/18 06:31) cimetidine [Cimetidine] Allergy (Unknown, Verified 06/01/18 06:31) BRADYCARDIA metronidazole [From Flagyl] Allergy (Unknown, Verified 06/01/18 06:31) Other-Enter Comments Metronidazole HCl [From Flagyl] Allergy (Unknown, Verified 06/01/18 06:31) Other-Enter Comments omeprazole [From Prilosec] Allergy (Unknown, Verified 06/01/18 06:31) Other-Enter Comments omeprazole magnesium [From Prilosec] Allergy (Unknown, Verified 06/01/18 06:31) Other-Enter Comments dexamethasone Allergy (Verified 06/01/18 06:31) latex [Latex] Allergy (Verified 06/01/18 06:31) Rash loperamide [From Imodium A-D] Allergy (Verified 06/01/18 06:31) tobramycin Allergy (Verified 06/01/18 06:31) immodium Allergy (Uncoded 12/05/17 12:46) spandex Allergy (Uncoded 12/05/17 12:46) Home Medications: Medication Instructions Recorded Lisinopril [Zestril 10 mg (*)] 10 mg PO BID 12/11/11 Propranolol HCl [Inderal 10mg (*)] 10 mg PO BID 08/18/12 Multivitamins [Multivitamin (*)] 1 each PO DAILY 05/30/17 Lomotil Tab (*) 12/05/17 Coreg 06/01/18 Hydrocodone/APAP 5/325 [[place] 1 - 2 tab PO Q6H PRN #15 tab 06/01/18 5/325 (*)] Phenergan 25mg (*) 06/01/18 Premarin 06/01/18 Penicillin V Potassium [Penicillin 500 mg PO BID #14 tab 09/18/18 VK] Valacyclovir HCl [Valtrex] 1,000 mg PO TID #21 tab 09/18/18 Medical Decision Making ED Course/Re-evaluation: 73-year-old woman who is 2 days post dental procedure who now has shingles in her oral mucosa. Patient is concerned about secondary infection given underlying heart murmur in can CHF condition. She is requesting antibiotics. Will dose her with penicillin however I think that she really needs fell psych liver. I have ordered her a 1000 mg of Valtrex now and the prescription for the standard shingles outbreak. She will follow up with primary care physician. Departure - Departure Disposition: Home, Routine, Self-Care Clinical Impression: Shingles Condition: Good Instructions: Shingles (ED) Additional Instructions: Follow up with her dentist in 2-3 days for further evaluation. Please take her full course of medications. Referrals: Tayo Lai [Primary Care Provider] - As per Instructions Prescriptions: Penicillin V Potassium [Penicillin VK] 500 mg PO BID #14 tab Valacyclovir HCl [Valtrex] 1,000 mg PO TID #21 tab
[2018-09-18] MEDS ORDERED: PENICILLIN VK 250MG PREPACK#6 BTL TAKEHOME ONE (23:27)
[2018-09-19 00:09] VITALS: BP 150/93
== END 2018-09-19 00:09 | disposition home or self-care (01) ==
DX: B02.9 Zoster without complications (principal)